=== PATIENT | female | born 1945 | race Caucasian/White ===

== ENCOUNTER 2021-02-15 14:08 | Outpatient (REF) | payer OTHER, SELFPAY ==
[2021-02-15 15:27] LABS: Influenza A PCR NEGATIVE (Negative); Influenza B PCR NEGATIVE (Negative); Resp Syncy Virus RNA Qual PCR NEGATIVE (Negative); SARS COV2 PCR INHOUSE POSITIVE (Negative)
== END 2021-02-15 14:09 | disposition home or self-care (01) ==
LOC: HO.LNP 14:08
PROVIDERS: Visit Provider Internal Medicine
DX: Z20.822 Contact with and (suspected) exposure to COVID-19 (principal)
CPT/HCPCS: 0241U

== ENCOUNTER 2024-07-29 08:48 | Outpatient (AMB) | payer OTHER, SELFPAY ==
--- NOTE | 2024-07-29 08:50 | MHC.PC.OV ---
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 Required: No Accompanied by: Self / Same As Patient Allergies No Known Allergies Allergy (Verified 07/29/24 08:50) Tobacco use date assessed: 07/29/24 Fall risk assessment: 2 + Falls in past year Last assessed Fall Risk: 07/29/24 Dental Screening Dental Screen Date: 07/29/24 Did you have a dental visit in the last 12 months?: No Did you have a dental problem in the last 6 months where you did not have access to dental care?: No Was dental information given to patient?: No (patient has dentures) [facility] Medical History (Updated 07/29/24 @ 09:20 by Ben Rogers MD) Hypothyroidism Essential hypertension Family History (Updated 07/29/24 @ 09:00 by DAHIANA Tran) Mother Cancer Lung cancer Father Stomach cancer Social History (Updated 07/29/24 @ 09:01 by DAHIANA Tran) Housing: Condominium Alcohol intake: current Alcohol intake frequency: holidays/special occasions only Patient Tobacco Use Status: Former Tobacco user service: No Current occupational status: employed Cognitive needs: No Hearing needs: No Vision needs: Yes (reading glasses) Questionnaire PHQ-9 Over the last 2 weeks, how often have you been bothered by any of the following problems? 1. Little interest or pleasure in doing things: not at all 2. Feeling down, depressed, or hopeless: not at all 3. Trouble falling or staying asleep, or sleeping too much: not at all 4. Feeling tired or having little energy: not at all 5. Poor appetite or overeating: not at all 6. Feeling bad about yourself - or that you are a failure or have let yourself or your family down: not at all 7. Trouble concentrating on things, such as reading the newspaper or watching television: not at all 8. Moving or speaking so slowly that other people could have noticed. Or the opposite - being so fidgety or restless that you have been moving around a lot more than usual: not at all 9. Thoughts that you would be better off or of hurting yourself in some way: not at all Total score: 0 Source: Developed by Drs. Babar Huertas, Sandy Loomis, Yovani Quiles and colleagues, with an educational ana from [email or web address]. Thrive Questionnaire Date Thrive assessed: 07/29/24 I am a: Patient What is your living situation today?: I have a steady place to live Within the past 12 months, did the food you bought not last and you didn't have the money to get more?: Never true Within the past 12 months, did you worry whether your food would run out before you got money to buy more?: Never true Do you have trouble paying for medicines?: No Do you have trouble getting transportation to medical appointments?: No Do you have trouble paying your heating and electricity bill?: No Do you have trouble taking care of your child, family member or friend?: No Do you have trouble with day-to-day activities such as bathing, preparing meals, shopping, managing finances, etc.?: No Are you currently unemployed and looking for a job?: No Are you interested in more education?: No Please select the resources that you would like help with: None THRIVE Score: 0 AUDIT C Alcohol Use Questionnaire (AUDIT-C) 1. How often do you have a drink containing alcohol?: Monthly or less 2. How many drinks containing alcohol do you have on a typical day when you are drinking?: 1 or 2 3. How often do you have six or more drinks on one occasion?: Never Total Score: 1 JASMIN-7 AMB Questionnaire JASMIN-7 Date JASMIN - 7 assessed: 07/29/24 Feeling nervous, anxious, or on edge: 0 = Not at all Not being able to stop or control worryin = Not at all Worrying too much about different things: 0 = Not at all Trouble relaxin = Not at all Being so restless that it is hard to sit still: 0 = Not at all Becoming easily annoyed or irritable: 0 = Not at all Feeling afraid as if something awful might happen: 0 = Not at all Total JASMIN-7 score (0-4 normal; 5-9 mild; 10-14 moderate; 15-21 severe): 0 Source: Developed by Drs. Babar Huertas, Sandy Loomis, Yovani Quiles and colleagues, with an educational ana from [email or web address]. Physical exam (Primary Care) Vital Signs: Last Vital Signs Temp 97.6 F 07/29/24 08:53 Pulse 92 07/29/24 08:53 Resp 14 07/29/24 08:53 BP 148/90 H 07/29/24 08:53 Pulse Ox 99 07/29/24 08:53 Oxygen Delivery Method Room Air 07/29/24 08:53 BMI result Body Mass Index 39.8 Tobacco/Smoking Status: Tobacco use Status Tobacco use date assessed 07/29/24 07/29/24 09:01 Patient Tobacco Use Status Former Tobacco user 07/29/24 09:01 PHQ-9: PHQ-9 Score PHQ-9: Total score 0 07/29/24 09:01 Thrive Assessment: Date of Thrive Assessment Date Thrive assessed 07/29/24 07/29/24 09:01 Coding Level of Care Code New Pt Level 4 (32722) Complex EM visit Add On G2211 Diagnoses Essential hypertension I10 Hypothyroidism E03.9 Systolic murmur R01.1 Assessment & Plan Assessment & Plan (1) Essential hypertension: Code(s): I10 - Essential (primary) hypertension Category: Medical Plan: BP in range. Continue medications at same dosage. (2) Hypothyroidism: Code(s): E03.9 - Hypothyroidism, unspecified Category: Medical Plan: BW has been ordered. Based on the results, thyroid medication will be adjusted (3) Systolic murmur: Code(s): R01.1 - Cardiac murmur, unspecified Plan: Echocardiogram ordered. Plan History of Present Illness The patient is a 79-year-old female presenting for follow-up due to transition of care, and she also requires management of her medications and health concerns. She has a history of COVID-19 infection, which notably resulted in significant symptomatology including loss of taste and smell, which have not entirely resolved. Additionally, she has been diagnosed with essential hypertension, previously managed with lisinopril, though she has recently run out of medication. The patient is currently on thyroid medication and requires routine blood work for monitoring. Moreover, she has a known systolic heart murmur that has yet to be thoroughly assessed with imaging such as an echocardiogram. Throughout the conversation, the patient expressed concern about the transition of care following the absence of her previous physician, Dr. Ardon, and her adjustment to a new healthcare provider. She lives alone, independently, and expressed challenges with night-time driving but denied any significant issues with vision or hearing. 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 - Lives alone in a condominium; resides within a complex where her best friend is a neighbor. - Drives primarily during the day; experiences difficulty driving at night. - No substance use or family planning concerns were reported. Review of Systems - Eyes: Denies halos around lights at night. - Cardiovascular: Reports previously diagnosed systolic heart murmur, no specific symptoms reported. - Neurological: Reports loss of taste and smell following a COVID-19 infection; partial transient recovery noted. Physical Exam General: Cooperative and healthy appearing Nutritional Appearance: Well nourished Orientation/consciousness: Patient oriented x3 Limitations: No limitations Head: Normal to inspection General: Appearance normal, both eyes and all related structures Neck: Normal visual inspection Chest: Normal palpation of entire chest wall Respiratory: Normal respiratory effort Neurology: Patient oriented x3 Heart: S1 S2 ESM, 2/6 in the aortic area Results Plan The patient?s essential hypertension will be managed with a consistent lisinopril regimen, ensuring to provide her with sufficient medication supply. A thorough assessment of her systolic heart murmur will be facilitated through an echocardiogram. No immediate intervention is recommended for dysgeusia as it remains residual from prior COVID-19 and improvement is anecdotal. A follow-up is scheduled in six months to monitor her cardiovascular status and ensure appropriate management of her hypertension. To achieve optimal care coordination, the patient?s thyroid function tests were ordered within the [facility] system, and her lisinopril and thyroid medications were refilled accordingly. Patient was informed and verbally consented to the use of an ambient scribe for clinic note documentation during this visit. Discussion Notes During our discussion, I addressed the patient's concerns regarding the transition of care due to Dr. Ardon's absence. We agreed to continue her lisinopril prescription as part of hypertension management, ensuring proper medication supply. We explored the impact of her COVID-19 infection on her senses, particularly the persistent dysgeusia, which we will continue to monitor, recognizing active interventions are limited. I explained the need for an echocardiogram to evaluate her known systolic heart murmur more deeply. I emphasized the importance of having her thyroid blood work conducted within the [facility] system for efficient processing, aligning with our clinical senior sql server database developer protocols. Follow-up in six months is planned to review her overall health status, address any emerging concerns, and re-evaluate her management plan if necessary. 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 - Visit the laboratory for thyroid function blood work within the [facility] system. - Arrange for an echocardiogram to assess heart murmur. - Monitor the intermittent improvement of taste and smell; report any significant changes. - Return for follow-up appointment in six months. - For any immediate health concerns, contact the clinic promptly. Orders: Orders Basic Metabolic Panel Today E03.9 - Hypothyroidism, unspecified, I10 - Essential (primary) hypertension Complete Blood Count no Diff Today E03.9 - Hypothyroidism, unspecified, I10 - Essential (primary) hypertension Liver Panel Today E03.9 - Hypothyroidism, unspecified, I10 - Essential (primary) hypertension Lipid Panel Today E03.9 - Hypothyroidism, unspecified, I10 - Essential (primary) hypertension UA and rflx microscopic Today E03.9 - Hypothyroidism, unspecified, I10 - Essential (primary) hypertension
[2024-07-29 08:53] VITALS: BP 148/90; PULSE 92; RESP 14; TEMP 36.4; O2SAT 99; BMI 39.8
== END 2024-07-29 09:15 | disposition home or self-care (01) ==
LOC: HO.HMCHD 08:48
PROVIDERS: PCP Internal Medicine; Visit Provider Internal Medicine
DX: I10 Essential (primary) hypertension (principal); E03.9 Hypothyroidism, unspecified; R01.1 Cardiac murmur, unspecified

== ENCOUNTER → 2024-07-29 08:48 | Outpatient (BNVA) | payer OTHER, SELFPAY | PROVIDERS: PCP Internal Medicine; Visit Provider Internal Medicine ==

== ENCOUNTER 2024-07-29 09:27 | Outpatient (REF) | payer OTHER, SELFPAY ==
[2024-07-29 10:37] LABS: Hematocrit 27.5 % (37.0-47.0); Hemoglobin 7.8 g/dl (12.0-16.0); Mean Corpuscular HGB Conc 28.4 g/dl (31.0-35.0); Mean Corpuscular Hemoglobin 20.6 pg (27.0-33.0); Mean Corpuscular Volume 72.6 fL (80.0-98.0); Mean Platelet Volume 10.3 fL (9.4-12.3); Platelet Count 294 X10*3/uL (160-400); Red Blood Count 3.79 X10*6/uL (4.20-5.50); Red Cell Distribution Width 17.4 % (11.0-16.0); White Blood Count 7.1 X10*3/uL (4.8-10.8)
[2024-07-29 11:03] LABS: Alanine Aminotransferase 25 U/L (0-31); Alkaline Phosphatase 101 U/L (39-117); Anion Gap 10 (12-20); Aspartate Amino Transferase 35 U/L (5-31); Bilirubin Direct 0.2 mg/dL (0.0-0.5); Bilirubin Total 0.4 mg/dL (0.0-1.0); Blood Urea Nitrogen 11 mg/dL (9-16); Calcium 9.1 mg/dL (8.4-10.2); Carbon Dioxide 24 mmol/L (22-29); Chloride 109 mmol/L (96-108); Cholesterol 178 mg/dL (<200); Estimated Glomerular Filt Rate > 60; Glucose Random 118 mg/dL (60-115); HDL Cholesterol 49 mg/dL (>40); LDL Cholesterol Calculated 114 mg/dL (<100); Sodium 139 mmol/L (135-145); Total Protein 7.4 g/dL (6.5-8.0); Triglycerides 75 mg/dL (<150)
[2024-07-29 11:10] LABS: Appearance Urine Cloudy; Color Urine Dark Yellow; Glucose Urine UA Negative (Negative); Leukocyte Esterase Urine Trace (Negative); Nitrite Urine Negative (Negative); PH 5.5 (5.0-9.0); Specific Gravity - Urine 1.025 (1.005-1.025); UMIC TRIGGER UA YES; Urine Blood Negative (Negative); Urine Ketones Trace mg/dL (Negative); Urine Protein Trace mg/dL (Neg-Trace)
[2024-07-29 11:32] LABS: Bacteria Urine 2+ (None Seen); Hyaline Casts Urine 0-2 /LPF (0-2); RBC Urine 0-2 /HPF (0-2); WBC Urine 0-5 /HPF (0-5)
== END 2024-07-29 09:28 | disposition home or self-care (01) ==
LOC: HO.10HDL 09:27
PROVIDERS: Visit Provider Internal Medicine
DX: I10 Essential (primary) hypertension (principal); E03.9 Hypothyroidism, unspecified
CPT/HCPCS: 36415; 80048; 80061; 80076; 81001; 81003; 85027

== ENCOUNTER 2024-08-06 13:27 | Outpatient (REF) | payer OTHER, SELFPAY ==
[2024-08-06 14:37] LABS: MANUAL DIFF FLAG NO
[2024-08-06 15:12] LABS: Basophils Percent Auto 0.4 % (0-2); Imm Gran Abs Auto 0.05 X10*3/uL (0.00-0.03); Imm Gran Pct Auto 0.5 % (0.0-0.4); Lymphocytes Absolute Auto 1.7 X10*3/uL (1.2-4.9); Lymphocytes Percent Auto 18.4 % (20-40); Mean Corpuscular HGB Conc 29.6 g/dl (31.0-35.0); Mean Corpuscular Hemoglobin 20.9 pg (27.0-33.0); Mean Corpuscular Volume 70.7 fL (80.0-98.0); Monocytes Absolute Auto 0.7 X10*3/uL (0.1-1.2); Monocytes Percent Auto 7.1 % (2-11); Neutrophils Absolute Auto 6.8 x10*3/uL (2.0-8.3); Neutrophils Percent Auto 73.6 % (45-73); Platelet Count 328 X10*3/uL (160-400); Red Blood Count 3.82 X10*6/uL (4.20-5.50); Red Cell Distribution Width 17.9 % (11.0-16.0); White Blood Count 9.2 X10*3/uL (4.8-10.8)
[2024-08-06 15:21] LABS: Estimated Average Glucose 140 mg/dL; Hemoglobin A1C 102.0831 umol/L; Hemoglobin A1c % 6.5 % (<6.0)
[2024-08-06 15:33] LABS: Appearance Urine Clear; Color Urine Yellow; Glucose Urine UA Negative (Negative); Leukocyte Esterase Urine Negative (Negative); Nitrite Urine Negative (Negative); PH 7.5 (5.0-9.0); Specific Gravity - Urine 1.015 (1.005-1.025); Urine Blood Negative (Negative); Urine Ketones Negative (Negative); Urine Protein Negative (Neg-Trace)
[2024-08-06 15:46] LABS: Alanine Aminotransferase 31 U/L (0-31); Albumin Level 4.1 g/dL (3.5-5.0); Anion Gap 12 (12-20); Aspartate Amino Transferase 36 U/L (5-31); Bilirubin Total 0.3 mg/dL (0.0-1.0); Blood Urea Nitrogen 12 mg/dL (9-16); Calcium 9.5 mg/dL (8.4-10.2); Carbon Dioxide 25 mmol/L (22-29); Chloride 109 mmol/L (96-108); Estimated Glomerular Filt Rate > 60; Glucose Random 107 mg/dL (60-115); Iron 11 mcg/dL (30-160); Percent Iron Saturation 3 % (15-50); Potassium 4.7 mmol/L (3.3-5.1); Sodium 141 mmol/L (135-145); Total Iron Binding Capacity 393 mcg/dL (228-428); Total Protein 7.2 g/dL (6.5-8.0); Unsaturated Iron Binding 382 ug/dL
[2024-08-06 16:04] LABS: TSH reflex Free T4 4.35 uIU/mL (0.32-4.0)
[2024-08-06 16:10] LABS: Folate 15.1 ng/mL (> or = 4.0); Vitamin B12 268 pg/mL (200-900)
[2024-08-06 16:35] LABS: Alkaline Phosphatase 113 U/L (39-117)
[2024-08-06 16:49] LABS: Free T4 (Free Thyroxine) 1.01 ng/dL (0.71-1.85)
== END 2024-08-06 13:28 | disposition home or self-care (01) ==
LOC: HO.LAB 13:27
PROVIDERS: Internal Medicine; PCP Internal Medicine; Visit Provider Internal Medicine
DX: D64.9 Anemia, unspecified (principal); E03.9 Hypothyroidism, unspecified; I10 Essential (primary) hypertension; Z13.1 Encounter for screening for diabetes mellitus
CPT/HCPCS: 80053; 81003; 82607; 82746; 83036; 83540; 84439; 84443; 85025; 96127

== ENCOUNTER 2024-08-06 13:27 | Outpatient (AMB) | payer OTHER, SELFPAY ==
--- NOTE | 2024-08-06 13:43 | MHC.PC.OV ---
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: No Accompanied by: Self / Same As Patient Allergies No Known Allergies Allergy (Verified 08/06/24 13:44) Tobacco use date assessed: 08/06/24 Fall risk assessment: No Falls in past year Last assessed Fall Risk: 08/06/24 Dental Screening Dental Screen Date: 08/06/24 Did you have a dental visit in the last 12 months?: No Did you have a dental problem in the last 6 months where you did not have access to dental care?: No HPI HPI Comments History of Present Illness Details The patient is an 79 year old female with a past medical history of hypothyroid, diabetes, , hyperlipidemia, anxiety presenting for follow up labs She was seen recently by colleague-labs were ordered. She was noted to be quite anemic. Referral to gastroenterology has been placed. Anemia labs ordered today Hypothyroid: On levothyroxine 75mcg daily. TSH minimally elevated with normal free T4 CV: On lisinopril 20mg daily. ROS CONSTITUTIONAL: Denies weight loss, fever and chills. HEENT: Denies changes in vision and hearing. RESPIRATORY: Denies SOB and cough. CV: Denies palpitations and CP GI: Denies abdominal pain, nausea, vomiting and diarrhea. : Denies dysuria and urinary frequency. MSK: Denies new myalgia and joint pain. SKIN: Denies rash and pruritus. NEUROLOGICAL: Denies headache PSYCHIATRIC: Denies recent changes in mood. PHYSICAL EXAM: GENERAL: Alert and oriented x 3. NAD EYES: EOMI. Anicteric. HENT: Moist mucous membranes. No scleral icterus. No cervical lymphadenopathy. LUNGS: Clear to auscultation bilaterally. CARDIOVASCULAR: Regular rate and rhythm. No murmur. No JVD. ABDOMEN: Soft, non-tender +bs EXTREMITIES: No edema. Non-tender. SKIN: No rashes or lesions. Warm. NEUROLOGIC: No focal neurological deficits. CN II-XII grossly intact PSYCHIATRIC: Cooperative. Appropriate mood and affect [facility] Medical History Hypothyroidism Essential hypertension Family History Mother Cancer Lung cancer Father Stomach cancer Social History Housing: Condominium Alcohol intake: current Alcohol intake frequency: holidays/special occasions only Patient Tobacco Use Status: Former Tobacco user service: No Current occupational status: employed Cognitive needs: No Hearing needs: No Vision needs: Yes (reading glasses) Questionnaire PHQ-9 Over the last 2 weeks, how often have you been bothered by any of the following problems? 1. Little interest or pleasure in doing things: not at all 2. Feeling down, depressed, or hopeless: not at all 3. Trouble falling or staying asleep, or sleeping too much: not at all 4. Feeling tired or having little energy: not at all 5. Poor appetite or overeating: not at all 6. Feeling bad about yourself - or that you are a failure or have let yourself or your family down: not at all 7. Trouble concentrating on things, such as reading the newspaper or watching television: not at all 8. Moving or speaking so slowly that other people could have noticed. Or the opposite - being so fidgety or restless that you have been moving around a lot more than usual: not at all 9. Thoughts that you would be better off or of hurting yourself in some way: not at all Total score: 0 Depression Screening Interpretation: Negative Depression Screening Done: Yes [id number] - PHQ-9 Billing: Yes Source: Developed by Drs. Babar Huertas, Sandy Loomis, Yovani Quiles and colleagues, with an educational ana from [employer]. Thrive Questionnaire Date Thrive assessed: 08/06/24 I am a: Patient Within the past 12 months, did the food you bought not last and you didn't have the money to get more?: Never true Within the past 12 months, did you worry whether your food would run out before you got money to buy more?: Never true Do you have trouble paying for medicines?: No Do you have trouble getting transportation to medical appointments?: No Do you have trouble paying your heating and electricity bill?: No Do you have trouble taking care of your child, family member or friend?: No Do you have trouble with day-to-day activities such as bathing, preparing meals, shopping, managing finances, etc.?: No Are you currently unemployed and looking for a job?: No Are you interested in more education?: No THRIVE Score: 0 AUDIT C Alcohol Use Questionnaire (AUDIT-C) 1. How often do you have a drink containing alcohol?: Monthly or less 2. How many drinks containing alcohol do you have on a typical day when you are drinking?: 1 or 2 3. How often do you have six or more drinks on one occasion?: Less than monthly Total Score: 2 JASMIN-7 AMB Questionnaire JASMIN-7 Date JASMIN - 7 assessed: 08/06/24 Feeling nervous, anxious, or on edge: 0 = Not at all Not being able to stop or control worryin = Not at all Worrying too much about different things: 0 = Not at all Trouble relaxin = Not at all Being so restless that it is hard to sit still: 0 = Not at all Becoming easily annoyed or irritable: 0 = Not at all Feeling afraid as if something awful might happen: 0 = Not at all Total JASMIN-7 score (0-4 normal; 5-9 mild; 10-14 moderate; 15-21 severe): 0 Source: Developed by Drs. Babar Huertas, Sandy Loomis, Yovani Quiles and colleagues, with an educational ana from [employer]. Physical exam (Primary Care) Vital Signs: Last Vital Signs Temp 97.4 F 08/06/24 13:44 Pulse 103 H 08/06/24 13:44 BP 140/82 H 08/06/24 13:44 Pulse Ox 99 08/06/24 13:44 Oxygen Delivery Method Room Air 08/06/24 13:44 BMI result Body Mass Index 39.6 Tobacco/Smoking Status: Tobacco use Status Tobacco use date assessed 08/06/24 08/06/24 13:46 Patient Tobacco Use Status Former Tobacco user 08/06/24 13:46 PHQ-9: PHQ-9 Score PHQ-9: Total score 0 08/09/24 15:52 Depression Screening Interpretation: Negative Thrive Assessment: Date of Thrive Assessment Date Thrive assessed 08/06/24 08/06/24 13:46 Coding Level of Care Code Est Pt Level 4 (23003) Diagnoses Anemia, unspecified type D64.9 Anemia type: unspecified type Hypothyroidism, unspecified type E03.9 Hypothyroidism type: unspecified Essential hypertension I10 Additional Codes PHQ-9 - 31601 - PHQ-9 Billing: Yes ([id number]) Assessment & Plan Assessment & Plan (1) Anemia: Code(s): D64.9 - Anemia, unspecified Category: Medical Qualifiers: Anemia type: unspecified type Qualified Code(s): D64.9 - Anemia, unspecified (2) Hypothyroidism: Code(s): E03.9 - Hypothyroidism, unspecified Category: Medical Qualifiers: Hypothyroidism type: unspecified Qualified Code(s): E03.9 - Hypothyroidism, unspecified (3) Essential hypertension: Code(s): I10 - Essential (primary) hypertension Category: Medical Plan 79 year old presenting for follow up Labs reviewed and further work up ordered-referral placed to gastroenterology Orders: Orders IRON PROFILE 08/06/24 D64.9 - Anemia, unspecified, E03.9 - Hypothyroidism, unspecified, I10 - Essential (primary) hypertension Vitamin B12 and Folate 08/06/24 D64.9 - Anemia, unspecified, E03.9 - Hypothyroidism, unspecified, I10 - Essential (primary) hypertension Complete Blood Count Auto Diff 08/06/24 D64.9 - Anemia, unspecified, E03.9 - Hypothyroidism, unspecified, I10 - Essential (primary) hypertension Pathologist Review - CBC 08/06/24 D64.9 - Anemia, unspecified, E03.9 - Hypothyroidism, unspecified, I10 - Essential (primary) hypertension TSH reflex Free T4 08/06/24 D64.9 - Anemia, unspecified, E03.9 - Hypothyroidism, unspecified, I10 - Essential (primary) hypertension Comprehensive Met. Panel 08/06/24 D64.9 - Anemia, unspecified, E03.9 - Hypothyroidism, unspecified, I10 - Essential (primary) hypertension Hemoglobin A1c 08/06/24 D64.9 - Anemia, unspecified, E03.9 - Hypothyroidism, unspecified, I10 - Essential (primary) hypertension Referrals Gastroenterology Referral D64.9 - Anemia, unspecified Medications: New lisinopril 20 mg PO DAILY 90 tabs 3RF levothyroxine 75 mcg PO DAILY 90 tabs 3RF
[2024-08-06 13:44] VITALS: BP 140/82; PULSE 103; TEMP 36.3; O2SAT 99; BMI 39.6
== END 2024-08-06 14:54 | disposition home or self-care (01) ==
LOC: HO.HMCHD 13:27
PROVIDERS: PCP Internal Medicine; Visit Provider Internal Medicine
DX: D64.9 Anemia, unspecified (principal); E03.9 Hypothyroidism, unspecified; I10 Essential (primary) hypertension

== ENCOUNTER → 2024-08-21 14:34 | Outpatient (REF) | payer OTHER, SELFPAY ==
--- NOTE | 2024-08-21 14:39 | CA_ITS ---
Transthoracic Echocardiogram Patient (Last, First, Middle): Nelida Das J Gender: Female Date of : 1945 Age: 79 Procedure Date: 08/21/2024 Procedure Type: Transthoracic Echocardiogram Location: OP Height: 152.4 cm Weight: 92.08 kg BSA: 1.88 m2 Heart Rate: bpm BP: 176 / 82 mmHg Uncrater: TO Referring MD: Ben Rogers MD Symptoms: R01.1 - Cardiac murmur, unspecified Study Quality: Fair/Contrast Conclusions: - Normal left ventricular cavity size. There is mildly increased left ventricular wall thickness. The left ventricular systolic function is low normal. The visually estimated ejection fraction is between 50-55%. - Normal right ventricular cavity size and systolic function. - The left atrium is severely dilated. The right atrium is normal in size. - There is severe aortic valve stenosis. - Severe pulmonary hypertension is present. Findings Procedure Information Contrast agent, definity, is being given per protocol without apparent complications. Left Ventricle Normal left ventricular cavity size. There is mildly increased left ventricular wall thickness. The left ventricular systolic function is low normal. The visually estimated ejection fraction is between 50-55%. There is no evidence of regional wall motion abnormalities. Diastolic function is indeterminate on the basis of available data. Right Ventricle Normal right ventricular cavity size and systolic function. Atria The left atrium is severely dilated. The right atrium is normal in size. Aortic Valve There is severe calcification of the aortic valve. There is severe aortic valve stenosis. The mean gradient is 43 mmHg. The aortic valve area is 0.85 cm2. There is mild aortic valve regurgitation. Mitral Valve There is severe mitral annular calcification. There is no mitral valve regurgitation. There is no mitral valve stenosis. Pulmonic Valve The pulmonic valve is likely normal. Tricuspid Valve Normal tricuspid valve structure. There is no tricuspid valve regurgitation. The right ventricular systolic pressure is 62 mmHg. Significantly elevated right atrial pressure. Severe pulmonary hypertension is present. Great Vessels There is mild dilatation of the ascending aorta measuring 4.00 cm. The visualized portions of the pulmonary artery and branches are normal. Venous The inferior vena cava is dilated and does not collapse with inspiration. Pericardium/Pleural There is no evidence of pericardial effusion. Measurements 2D Linear Measurements IVSd: 1.34 0.6-0.9/0.6-1.0 cm LVIDd: 5.32 3.9-5.3/4.2-5.9 cm LVIDd Index: 2.83 2.4-3.2/2.2-3.1 cm/m2 LVIDs: 3.95 2.0-3.6 cm LVPWd: 0.95 0.7-1.1 cm LV Mass: 302.29 67-162/88-224 g LV Mass Index: 160.79 43-95/49-115 g/m2 LVOT Diam: 2.00 3.0+(-)1.3 cm 2D Systolic Function EF 4C: 43.00 >55% EF 2C: 44.00 >55% EF BiP: 44.80 >55% Mitral Valve MV VTI: 0.35 MV Pk Sanket: 1.67 MV Mn Sanket: 1.26 MV Pk Grad: 11.00 MV Mn Grad: 7.00 MV Pk E: 1.52 MV PK A: 1.49 MV Decel Time: 162.00 E/A: 1.00 E'Lateral: 4.35 E'Medial: 4.90 E/E' Med: 31.00 E/E' Lat: 34.90 PHT: 47.00 MVA PHT: 4.68 MVA Continuity: 2.26 Decel Rolette: 9.41 Aortic Valve AoV Pk Sanket: 4.17 AoV Mn Sanket: 2.99 AoV VTI: 0.91 AoV Pk Grad: 70.00 Aov Mn Grad: 43.00 MEHNAZ Cont.VTI: 0.85 AI Pk Sanket: 3.60 AI Rolette: 3.11 LVOT LVOT Pk Sanket: 1.08 LVOT Mn Sanket: 0.74 LVOT VTI: 0.25 LVOT Pk Grad: 5.00 LVOT Mn Grad: 3.00 LVOT Diam: 2.00 LVOT Area: 3.14 Diastolic Function MV Pk E: 1.52 MV Pk A: 1.49 E/A: 1.00 E'Medial: 4.90 E/E' Med: 31.00 E' Laterial: 4.35 E/E' Lat: 34.90 Right Ventricle TAPSE (mm): 20.90 TVS' Sanket: 10.30 Tricuspid Valve TR Pk Sanket: 3.43 TR Pk Grad: 47.00 RA Press: 15.00 RVSP: 62.00 Great Vessels Aorta Sinus of Valsalva: 2.98 2.0-3.5 cm Ao Asc: 4.00 2.1-3.4 cm Updated in Other Vendor System with Status of Final Evert Borrero MD electronically signed on 08/22/2024 11:59:16 PM with status of Final
--- OUTSIDE RECORDS SUMMARY | 2024-08-21 14:51 | XMS_ITS | Patient Health Record ---
Author Organization [facility] Address [address] [place] [address] [place] [id number] Care Team Providers Care Gis Application Developer Name Role Phone Loree Peace M.D. Primary Care Provider Keegan Rolon Jr, Raoul Unavailable Reason For Referral No Information Medications Medication SIG (Take, Route, Frequency, Duration) Notes Start Date End Date Status Colyte with Flavor Packs 240 GM As directed Orally Over the specified time. for 1 day(s) 02/22/2016 Active busPIRone HCl 10 MG 1 tablet Orally once a day Active Lisinopril 20 MG 1 tablet Orally Once a day Active Levothyroxine Sodium 137 MCG 1 tablet Or ally Once a day Active Problems Problem Type SNOMED Code ICD Code Onset Dates Problem Status W/U Status Risk Notes Problem [id number] Colon cancer screening (Z12.11) Active confirmed Problem 10022143 Encounter for other preprocedural examination (Z01.818) Active confirmed Encounters Encounter Location Date Provider Diagnosis [facility] [address] [id number] 08/14/2024 Raoul Rolon Jr Plan Of Treatment Future Test Test Name Order Date COLONOSCOPY 02/22/2016 Next Appt Details Provider Name:Raoul salinas Jr, 08/28/2024 11:00:00 AM, [address] [place] [address], [facility], [place], [id number], Insurance Providers Payer Name Payer Address Payer Phone Subscriber Number Group Number Insured Name Patient Relationship to Insured Coverage Start Date Coverage End Date [facility] [address] [place] [phone] [id number] WINSTON CANO Self - patient is the insured Medical (General) History Medical History History ICD Code hypertension hypothyroidism depression
--- OUTSIDE RECORDS SUMMARY | 2024-08-21 14:51 | XMS_ITS ---
Author Organization [facility] Address [address] [facility] [address] [place] [address] Care Team Providers Care Concrete Stone Fabricator Name Role Phone Loree Peace M.D. Primary Care Provider Keegan Rolon Jr, Raoul Unavailable [phone] REASON FOR VISIT Labs from PCP Encounters Encounter Location Date Provider Diagnosis [facility] [address] [facility] [address] [place] [address] 08/14/2024 Raoul Rolon Jr Plan Of Treatment Next Appt Details Provider Name:Raoul salinas Jr, 08/28/2024 11:00:00 AM, [address] [facility], [address], [place], [address], Progress Notes * WINSTON CANODOB:[birth year] (79 yo F)Acc No.[id number]:08/14/2024 Patient:?JONATHON CANOBETH :1945???Age:79 Y???Sex:Female Address:[address] [place] [address], [facility], [place], [address] * true * Date:? Generated for Carlenei kenia/Sue/eTransmitting on:?08/21/2024 02:51 PM EDT
== END ==
LOC: HO.CARD 14:34
PROVIDERS: PCP Internal Medicine; Visit Provider Internal Medicine
DX: R01.1 Cardiac murmur, unspecified (principal)
CPT/HCPCS: 93306; Q9957

== ENCOUNTER → 2024-08-21 14:39 | Outpatient (BNV) | payer OTHER, SELFPAY | PROVIDERS: PCP Internal Medicine; Visit Provider Internal Medicine Cardiovascular Disease | DX: I27.20 Pulmonary hypertension, unspecified (principal); I35.2 Nonrheumatic aortic (valve) stenosis with insufficiency; I51.7 Cardiomegaly | CPT/HCPCS: 93306 ==

== ENCOUNTER 2024-10-19 14:08 | Outpatient (AMB) | payer OTHER, SELFPAY ==
--- NOTE | 2024-10-19 14:30 | MHC.OFFVIS ---
Vital Signs 10/19/24 14:31 Height 5 ft Weight 194 lb 7.163 oz BMI 38.0 BP 160/80 H Blood Pressure Location Lt brachial Position Sitting Pulse 92 Pulse Source Monitor Intake Visit Reasons: Nonrheumatic aortic (valve) stenosis Intake Note: TAVR consult Senior Escrow Officer Required: No Accompanied by: Self / Same As Patient Allergies No Known Allergies Allergy (Verified 08/06/24 13:44) Medication List - Last Reconciled 10/19/24 by Evert Borrero MD levothyroxine 75 mcg PO DAILY lisinopril 20 mg PO DAILY HPI Comments Details: [age] year female who is here for management of aortic valve stenosis. She has background history of hypertension and hypothyroidism. She is saying she has white coat hypertension and usually has elevated blood pressure in doctor's office. She has been experiencing dyspnea with exertion especially with going upstairs. 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 She is denying any chest discomfort or syncope. She was also noticed to be anemic recently and was being worked up and endoscopy was planned which has been canceled at this stage. She is denying any rectal bleeding or black stools although she started taking iron supplements recently and has noticed some change in the color of the stool. She is a nonsmoker. No other medical issues in the past. [facility] Medical History (Updated 08/24/24 @ 08:58 by Ben Rogers MD) Aortic stenosis Hypothyroidism Essential hypertension Surgical History History of colonoscopy (~07/13/16) Family History Mother Cancer Lung cancer Father Stomach cancer Social History Housing: Condominium Alcohol intake: current Alcohol intake frequency: holidays/special occasions only Patient Tobacco Use Status: Former Tobacco user service: No Current occupational status: employed Cognitive needs: No Hearing needs: No Vision needs: Yes (reading glasses) Review of Systems Const Denies chills, Denies fatigue, Denies fever(s), Denies frequent falls, Denies weakness, Denies weight gain and Denies weight loss ENT Denies dizziness Card Denies chest pain, Denies leg edema, Denies lightheadedness, Denies palpitations, Denies dyspnea, Denies dyspnea on exertion and Denies orthopnea Resp Denies cough, Denies dyspnea and Denies dyspnea on exertion GI Denies bloating and Denies change in bowel habits Musc Denies muscle weakness, Denies numbness and Denies tingling Neuro Denies dizziness, Denies frequent falls, Denies numbness, Denies tingling and Denies weakness Endo Denies fatigue and Denies palpitations Physical Exam Vital Signs: Last Vital Signs Pulse 92 10/19/24 14:31 BP 160/80 H 10/19/24 14:31 BMI result Body Mass Index 38.0 GENERAL APPEARANCE: in no acute distress, pleasant. NECK: no carotid bruit, no jugular venous distention. Delayed carotid upstrokes. SKIN: no suspicious lesions, warm and dry. HEART: Ejection systolic murmur aortic area with absent 2nd heart sound, regular rate and rhythm. LUNGS: clear to auscultation bilaterally. ABDOMEN: soft, nontender. EXTREMITIES: no edema. PERIPHERAL PULSES: equal. NEUROLOGIC: No gross deficits, AAO X 3 Office Procedures EKG Details: Sinus rhythm 92 beats per minute, normal axis, nonspecific ST-T changes, QTC 430 milliseconds. 03437-Hkbsaafqfezgebmpe, Complete Assessment & Plan Assessment & Plan (1) Anemia: Code(s): D64.9 - Anemia, unspecified Category: Medical Qualifiers: Anemia type: unspecified type Qualified Code(s): D64.9 - Anemia, unspecified (2) Aortic stenosis: Code(s): I35.0 - Nonrheumatic aortic (valve) stenosis Category: Medical (3) Essential hypertension: Code(s): I10 - Essential (primary) hypertension Category: Medical Plan Fatou 79-year-old female who is here for management of severe aortic valve stenosis. She had echocardiography performed in August 2024 which showed EF 50-55% with severe aortic valve stenosis with aortic valve area of 0.85 cm2 and mean gradient of 43 mm Hg. She was also noticed to have severe pulmonary hypertension with pulmonary artery systolic pressure is 62 mm Hg. Right ventricular function and size was normal. She does not have any significant conduction issues on the EKG. I will send her blood pressure cuff and she can monitor her blood pressure at home and we can see if her hypertension is poorly controlled or she truly has white coat hypertension. We discussed in detail about management options including surgical aortic valve replacement and transcatheter aortic valve replacement. She is interested in transcatheter aortic valve replacement. I have explained to her about the workup including TAVR protocol CTA and a discussion with Cardiothoracic surgery. We will arrange this at [facility]. I have discussed with her about potential complications including bleeding, vascular injury, infection, stroke, and permanent pacemaker placement. She understands and is agreeable for further workup at this stage. She also has anemia and should undergo endoscopy to understand the cause. She is intermediate risk for perioperative complications. Thank you for allowing me to participate in the care of your patient. Please feel free to contact me if you have any questions. Medications: New blood pressure monitor (Blood Pressure Kit) As directed 1 ea 0RF I10 - Essential (primary) hypertension Coding Level of Care Code New Pt Level 5 (35436) Complex EM visit Add On G2211 Diagnoses Anemia, unspecified type D64.9 Anemia type: unspecified type Aortic stenosis I35.0 Essential hypertension I10 CPT Codes EKG - CPT: 73273-Lekhxedrewztxpitq, Complete ([id number])
[2024-10-19 14:31] VITALS: BP 160/80; PULSE 92; BMI 38.0
--- OUTSIDE RECORDS SUMMARY | 2024-10-19 16:05 | XMS_ITS | Patient Health Record ---
Author Organization [facility] Address [address] [place] [address] Care Team Providers Care Fur Buyer Name Role Phone CHAD, KARTIK Primary Care Provider Raoul Allen Jr [phone] Allergies No Known Allergies Reason For Referral No Information Medications Medication SIG (Take, Route, Frequency, Duration) Notes Start Date End Date Status Iron (Ferrous Sulfate) 325 (65 Fe) MG 1 tablet Orally Three times a Week Active Lisinopril 20 MG 1 tablet Orally Once a day Active Levothyroxine Sodium 137 MCG 1 tablet Or ally Once a day Active Immunizations Vaccine Route Administration Date Status Comme nts Influenza Unknown 03/03/2024 Administered Problems Problem Type SNOMED Code ICD Code Onset Dates Problem Status W/U Status Risk Notes Problem 435162309 Colon cancer screening (Z12.11) Active confirmed Problem 92599034 Encounter for other preprocedural examination (Z01.818) Active confirmed Problem 85053536 Iron deficiency anemia, unspecified iron deficiency anemia type (D50.9) Active confirmed Vital Signs Temperature 98.0 degrees Fahrenheit 08/28/2024 Blood pressure diastolic 01 mm Hg 08/28/2024 Height 60.5 in 08/28/2024 Blood pressure systolic 001 mm Hg 08/28/2024 Weight 202 lbs 08/28/2024 BMI 38.8 kg/m2 08/28/2024 Encounters Encounter Location Date Provider Diagnosis [facility] [address] [place] [address] 08/28/2024 Raoul Rolon Jr Iron deficiency anemia, unspecified iron deficiency anemia type D50.9 [facility] [address] [place] [address] 08/14/2024 Raoul Rolon Jr [facility] [address] [place] [address] 09/16/2024 Raoul Rolon Jr Assessments Encounter Date Diagnosis (ICD Code) Assessment Notes Treatment Notes Treatment Clinical Notes Section Notes 08/28/2024 Iron deficiency anemia, unspecified iron deficiency anemia type (ICD-10 - D50.9) We discussed further evaluation of her iron deficiency anemia. We have recommended upper endoscopy and colonoscopy. She is aware of risks and benefits and agrees to proceed. She is advised to stop iron 1 week before the procedure. 08/28/2024 Other Endoscopy material was printed We discussed further evaluation of her iron deficiency anemia. We have recommended upper endoscopy and colonoscopy. She is aware of risks and benefits and agrees to proceed. She is advised to stop iron 1 week before the procedure. Plan Of Treatment Future Test Test Name Order Date COLONOSCOPY 02/22/2016 UPPER GI ENDOSCOPY 08/28/2024 COLONOSCOPY 08/28/2024 Insurance Providers Payer Name Payer Address Payer Phone Subscriber Number Group Number Insured Name Patient Relationship to Insured Coverage Start Date Coverage End Date [facility] [address] [place] [phone] [id number] WINSTON CANO Self - patient is the insured Medical (General) History Medical History History ICD Code hypertension hypothyroidism depression
== END 2024-10-19 15:10 | disposition home or self-care (01) ==
LOC: HO.HCS 14:08
PROVIDERS: PCP Internal Medicine; Visit Provider Internal Medicine Cardiovascular Disease
DX: D64.9 Anemia, unspecified (principal); I35.0 Nonrheumatic aortic (valve) stenosis; I10 Essential (primary) hypertension; R94.31 Abnormal electrocardiogram [ECG] [EKG]
CPT/HCPCS: 93010; 99214

== ENCOUNTER → 2024-10-19 14:08 | Outpatient (BNVA) | payer OTHER, SELFPAY | PROVIDERS: PCP Internal Medicine; Visit Provider Internal Medicine Cardiovascular Disease | DX: I10 Essential (primary) hypertension (principal); I35.0 Nonrheumatic aortic (valve) stenosis | CPT/HCPCS: 93005 ==

== ENCOUNTER 2024-12-29 15:31 | Outpatient (REF) | payer OTHER, SELFPAY ==
--- OUTSIDE RECORDS SUMMARY | 2024-12-29 16:49 | XMS_ITS | Patient Health Record ---
Author Organization [facility] Address [address] [place] [address] Care Team Providers Care Caul Fat Puller Name Role Phone CHAD, KARTIK Primary Care Provider Raoul Allen Jr Allergies No Known Allergies Reason For Referral [...] Problem Status W/U Status Risk Notes Problem 001891393 Colon cancer screening (Z12.11) Active confirmed Problem 57212343 Encounter for other preprocedural examination (Z01.818) Active confirmed Problem 39359110 Iron deficiency anemia, unspecified iron deficiency anemia type (D50.9) Active confirmed Vital Signs Temperature 98.0 degrees Fahrenheit 08/28/2024 Blood pressure diastolic 01 mm Hg 08/28/2024 Height 60.5 in 08/28/2024 Blood pressure systolic 001 mm Hg 08/28/2024 Weight 202 lbs 08/28/2024 BMI 38.8 kg/m2 08/28/2024 Encounters Encounter Location Date Provider Diagnosis [facility] [address] [place] [address] 08/28/2024 Raoul Rolon Jr Iron deficiency anemia, unspecified iron deficiency anemia type D50.9 [facility] [address] [place] [address] 08/14/2024 Raoul Rolon Jr [facility] [address] [place] [address] 09/16/2024 Raoul Rolon Jr [facility] [address] [place] [address] 10/29/2024 Raoul Rolon Jr Assessments Encounter Date Diagnosis [...] Insured Coverage Start Date Coverage End Date [facility] [address] [place] [phone] [id number] WINSTON CANO Self - patient is the insured Medical (General) History Medical History History ICD Code hypertension hypothyroidism depression
[2024-12-29 17:13] LABS: Hematocrit 30.5 % (37.0-47.0); Hemoglobin 9.3 g/dl (12.0-16.0); Mean Corpuscular HGB Conc 30.5 g/dl (31.0-35.0); Mean Corpuscular Hemoglobin 26.6 pg (27.0-33.0); Mean Corpuscular Volume 87.4 fL (80.0-98.0); NRBC Abs Auto 0.000 X10*3/uL (0.0-0.012); NRBC Pct Auto 0.0 /100WBC (0.0-0.2); Platelet Count 295 X10*3/uL (160-400); Red Blood Count 3.49 X10*6/uL (4.20-5.50); White Blood Count 8.1 X10*3/uL (4.8-10.8)
[2024-12-29 17:42] LABS: B Type Natriuretic Peptide 356 pg/mL (<100)
[2024-12-29 17:51] LABS: Anion Gap 14 (12-20); Blood Urea Nitrogen 17 mg/dL (9-16); Calcium 9.4 mg/dL (8.4-10.2); Carbon Dioxide 25 mmol/L (22-29); Chloride 106 mmol/L (96-108); Estimated Glomerular Filt Rate > 60; Iron 24 mcg/dL (30-160); Percent Iron Saturation 7 % (15-50); Potassium 4.9 mmol/L (3.3-5.1); Sodium 140 mmol/L (135-145); Total Iron Binding Capacity 348 mcg/dL (228-428); Unsaturated Iron Binding 324 ug/dL
[2024-12-29 18:04] LABS: Ferritin 47 ng/mL (10-250)
== END 2024-12-29 15:32 | disposition home or self-care (01) ==
LOC: HO.LAB 15:31
PROVIDERS: PCP Internal Medicine; Visit Provider Internal Medicine Cardiovascular Disease
DX: I35.0 Nonrheumatic aortic (valve) stenosis (principal)
CPT/HCPCS: 36415; 80048; 82728; 83540; 83880; 85027

== ENCOUNTER 2025-02-01 14:05 | Outpatient (AMB) | payer OTHER, SELFPAY ==
--- NOTE | 2025-02-01 14:10 | MHC.OFFVIS ---
Vital Signs 02/01/25 14:12 Height 5 ft Weight 202 lb 13.204 oz BMI 39.6 BP 140/70 H Blood Pressure Location Lt brachial Position Sitting Pulse 85 Pulse Source Monitor Intake Visit Reasons: per KM Technical Mgr Required: No Accompanied by: Self / Same As Patient Allergies No Known Allergies Allergy (Verified 08/06/24 13:44) Medication List - Last Reconciled 02/01/25 by Evert Borrero MD blood pressure monitor (Blood Pressure Kit) As directed levothyroxine 75 mcg PO DAILY lisinopril 20 mg PO DAILY HPI Comments Details: Pleasant 80 year female who is here for follow-up. She was seen previously for aortic valve stenosis and underwent TAVR protocol CTA and had a surgical discussion. She had STS risk score of 3.25% which puts her in the intermediate risk category. 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 She previously was asymptomatic and continues to report no symptoms. She walked from 1 corridor to my office and was short of breath with that level of activity. She was shown the CT scan along with a nodular calcium in the LVOT and the associated risk of paravalvular leak and annular injury in case aggressive post dilation is done. Otherwise she had nothing to report currently and was here for routine discussion. [facility] Medical History Aortic stenosis Hypothyroidism Essential hypertension Surgical History History of colonoscopy (~07/13/16) Family History Mother Cancer Lung cancer Father Stomach cancer Social History Housing: Condominium Alcohol intake: current Alcohol intake frequency: holidays/special occasions only Patient Tobacco Use Status: Former Tobacco user service: No Current occupational status: employed Cognitive needs: No Hearing needs: No Vision needs: Yes (reading glasses) Review of Systems Const Denies chills, Denies fatigue, Denies fever(s), Denies frequent falls, Denies weakness, Denies weight gain and Denies weight loss ENT Denies dizziness Card Denies chest pain, Denies leg edema, Denies lightheadedness, Denies palpitations, Denies dyspnea and Denies dyspnea on exertion Resp Denies cough, Denies dyspnea and Denies dyspnea on exertion GI Denies hematochezia Musc Denies abnormal gait, Denies muscle weakness, Denies numbness, Denies radiating pain into limb and Denies tingling Neuro Denies abnormal gait, Denies dizziness, Denies frequent falls, Denies numbness, Denies tingling and Denies weakness Endo Denies fatigue and Denies palpitations Physical Exam Vital Signs: Last Vital Signs Pulse 85 02/01/25 14:12 BP 140/70 H 02/01/25 14:12 BMI result Body Mass Index 39.6 GENERAL APPEARANCE: in no acute distress, pleasant. NECK: no carotid bruit, no jugular venous distention. Delayed carotid upstrokes. SKIN: no suspicious lesions, warm and dry. HEART: Ejection systolic murmur aortic area with absent 2nd heart sound, regular rate and rhythm. LUNGS: clear to auscultation bilaterally. ABDOMEN: soft, nontender. EXTREMITIES: no edema. PERIPHERAL PULSES: equal. NEUROLOGIC: No gross deficits, AAO X 3 Assessment & Plan Assessment & Plan (1) Anemia: Code(s): D64.9 - Anemia, unspecified Category: Medical Qualifiers: Anemia type: unspecified type Qualified Code(s): D64.9 - Anemia, unspecified (2) Aortic stenosis: Code(s): I35.0 - Nonrheumatic aortic (valve) stenosis Category: Medical (3) Essential hypertension: Code(s): I10 - Essential (primary) hypertension Category: Medical Plan Pleasant 80-year-old female who is here for management of severe aortic valve stenosis. She had echocardiography performed in August 2024 which showed EF 50-55% with severe aortic valve stenosis with aortic valve area of 0.85 cm2 and mean gradient of 43 mm Hg. She was also noticed to have severe pulmonary hypertension with pulmonary artery systolic pressure is 62 mm Hg. Right ventricular function and size was normal. TAVR protocol CTA has shown LVOT calcification and there is some risk of paravalvular leak. I have explained to the patient that this is not prohibitive for TAVR although the risk for paravalvular leak and annular injury in case post dilation of valve is done is still possible. The patient is adamant that she had a discussion with her daughter and family and would not consider surgery. After detailed discussion about pros and cons of surgery versus transcatheter aortic valve replacement she wishes to undergo TAVR. I will have a discussion with Dr. Brunson and the TAVR team and would consider proceeding with TAVR. She previously had anemia and was advised to take iron which she has not tolerated. She will discuss with Hematology about IV iron. Thank you for allowing me to participate in the care of your patient. Please feel free to contact me if you have any questions. Coding Level of Care Code Est Pt Level 5 (56085) Diagnoses Anemia, unspecified type D64.9 Anemia type: unspecified type Aortic stenosis I35.0 Essential hypertension I10
[2025-02-01 14:12] VITALS: BP 140/70; PULSE 85; BMI 39.6
== END 2025-02-01 14:49 | disposition home or self-care (01) ==
LOC: HO.HCS 14:06
PROVIDERS: PCP Internal Medicine; Visit Provider Internal Medicine Cardiovascular Disease
DX: D64.9 Anemia, unspecified (principal); I35.0 Nonrheumatic aortic (valve) stenosis; I10 Essential (primary) hypertension; I49.3 Ventricular premature depolarization
CPT/HCPCS: 93010; 99215

== ENCOUNTER → 2025-02-01 14:05 | Outpatient (BNVA) | payer OTHER, SELFPAY | PROVIDERS: PCP Internal Medicine; Visit Provider Internal Medicine Cardiovascular Disease | DX: I10 Essential (primary) hypertension (principal); I35.0 Nonrheumatic aortic (valve) stenosis | CPT/HCPCS: 93005 ==

== ENCOUNTER 2025-02-19 10:16 | Outpatient (REF) | payer OTHER, SELFPAY ==
[2025-02-19 10:38] LABS: MANUAL DIFF FLAG NO
[2025-02-19 11:13] LABS: Hematocrit 29.4 % (37.0-47.0); Hemoglobin 9.1 g/dl (12.0-16.0); Imm Gran Abs Auto 0.04 X10*3/uL (0.00-0.03); Imm Gran Pct Auto 0.5 % (0.0-0.4); Lymphocytes Absolute Auto 1.2 X10*3/uL (1.2-4.9); Mean Corpuscular HGB Conc 31.0 g/dl (31.0-35.0); Mean Corpuscular Hemoglobin 27.0 pg (27.0-33.0); Mean Corpuscular Volume 87.2 fL (80.0-98.0); NRBC Abs Auto 0.000 X10*3/uL (0.0-0.012); NRBC Pct Auto 0.0 /100WBC (0.0-0.2); Platelet Count 320 X10*3/uL (160-400); Red Blood Count 3.37 X10*6/uL (4.20-5.50); White Blood Count 7.6 X10*3/uL (4.8-10.8)
[2025-02-19 11:14] LABS: Appearance Urine Clear; Glucose Urine UA Negative (Negative); PH 6.0 (5.0-9.0); Specific Gravity - Urine 1.025 (1.005-1.025); UMIC TRIGGER UA YES
[2025-02-19 11:53] LABS: Alanine Aminotransferase 7 U/L (0-31); Albumin Level 4.3 g/dL (3.5-5.0); Alkaline Phosphatase 196 U/L (39-117); Anion Gap 15 (12-20); Aspartate Amino Transferase 23 U/L (5-31); Blood Urea Nitrogen 16 mg/dL (9-16); Calcium 9.9 mg/dL (8.4-10.2); Carbon Dioxide 20 mmol/L (22-29); Chloride 114 mmol/L (96-108); Estimated Glomerular Filt Rate 60; Potassium 3.5 mmol/L (3.3-5.1); Sodium 145 mmol/L (135-145); Total Protein 6.9 g/dL (6.5-8.0)
[2025-02-19 12:04] LABS: Epith (RTE) Cast Present
[2025-02-19 12:22] LABS: HBS Num1 0.00 mIU/mL (0-7.99); HBc Num1 0.05 S/CO (0.00-0.79); HBsAGNum1 0.54 S/CO (0.00-0.99); HIV Num 1 0.19 S/CO (0.00-0.99); Hepatitis A Antibody IgM 0.18 Index (0-0.79); Hepatitis B Surface Antigen Negative (Negative); ~HepC Num1 0.10 S/CO (0.00-0.79); ~Hepatitis A Antibody IgM Nonreactive (Nonreactive); ~Hepatitis B Surface Antibody NONREACTIVE (Nonreactive); ~Hepatitis C Antibody Nonreactive (Nonreactive)
[2025-02-19 12:38] LABS: Uric Acid 5.9 mg/dL (2.4-5.7)
[2025-02-23 21:29] LABS: Prot Elec - Albumin 3.9 g/dL (3.8-4.8); Prot Elec - Alpha1 0.4 g/dL (0.2-0.3); Prot Elec - Alpha2 0.8 g/dL (0.5-0.9); Prot Elec - Beta 1 0.5 g/dL (0.4-0.6); Prot Elec - Beta 2 0.3 g/dL (0.2-0.5); Prot Elec - Gamma 0.6 g/dL (0.8-1.7); Prot Elec - Total Protein 6.5 g/dL (6.1-8.1)
[2025-02-25 12:38] LABS: PEU-Protein Creat Ratio Rand 0.396 (0.024-0.184); PEU-Rand. Prot/Creat Ratio 396 mg/g creat (24-184); PEU-Random Ur. Gamma Globulin 21 %; PEU-Random Urine A1 Globulin 6 %; PEU-Random Urine A2 Globulin 16 %; PEU-Random Urine Albumin 35 %; PEU-Random Urine Beta Globulin 22 %; PEU-Random Urine Creatinine 134 mg/dL (20-275); PEU-Random Urine Protein 53 mg/dL (5-24)
[2025-02-25 15:59] LABS: Kappa, Serum 175 mg/dL (176-443); Kappa/Lambda Ratio, Serum 1.84 (1.29-2.55); Lambda, Serum 95 mg/dL (91-240)
== END 2025-02-19 10:17 | disposition home or self-care (01) ==
LOC: HO.LAB 10:16
PROVIDERS: PCP Student in an Organized Health Care Education/Training Program; Visit Provider Student in an Organized Health Care Education/Training Program
DX: C80.1 Malignant (primary) neoplasm, unspecified (principal); S22.060A Wedge compression fracture of T7-T8 vertebra, initial encounter for closed fracture; I10 Essential (primary) hypertension; E03.9 Hypothyroidism, unspecified; I35.0 Nonrheumatic aortic (valve) stenosis
CPT/HCPCS: 80053; 81001; 82306; 82570; 82784; 83883; 84156; 84165; 84166; 84550; 85025; 85652; 86141; 86334; 86335; 86704; 86706; 86709; 86803; 87340; 87389

== ENCOUNTER 2025-02-19 10:48 | Outpatient (AMB) | payer OTHER, SELFPAY ==
--- NOTE | 2025-02-19 10:48 | MHC.PC.OV ---
Vital Signs 02/19/25 10:53 Height 5 ft BP 138/68 Blood Pressure Location Lt brachial Position Sitting Intake Visit Reasons: CA dx (see comments) Wood Coater Required: No Accompanied by: daughterEnio Allergies No Known Allergies Allergy (Verified 02/19/25 10:48) Tobacco use date assessed: 08/06/24 Dental Screening Dental Screen Date: 08/06/24 HPI HPI Comments History of Present Illness Details The patient is a 80-year-old female presenting with severe back pain. The pain initiated during an incident involving gardening activities, specifically pulling weeds and attempting to shut off a washing machine valve about two weeks prior to her visit. During this activity, she felt and heard a crack in her back while bent over the washing machine, which was further aggravated by poor ergonomics given her age. Since the initial injury, the back pain has progressively worsened, reaching a severity level of 10/10. It significantly impaired her planned activities and a vacation. Getting in and out of bed has become particularly painful, although Motrin offers some minor pain relief. The patient denies any weakness in the legs but reports significant pain that has affected her ability to walk comfortably. Additionally, there is a report of substantial weight loss of approximately 30-40 pounds over several months, initiated by a diet corresponding with the diagnosis of an aortic valve issue. She denied experiencing fevers, night sweats, or chills. Cardiovascular follow-up remains important due to an existing aortic valve issue which has not yet been surgically addressed. Medical History: - Hypertension, managed with lisinopril - Hypothyroidism, managed with levothyroxine - Previous diagnosis regarding aortic valve disease Surgical History: - None noted specifically; aortic valve surgery discussed but not yet performed. 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 - Lives alone, with a supportive community nearby, including a close friend. - Engaged in weight management through diet. [facility] Medical History (Updated 02/19/25 @ 11:24 by Sami Cummings MD) Compression fracture of T8 vertebra Malignant neoplasm Aortic stenosis Hypothyroidism Essential hypertension Surgical History History of colonoscopy (~07/13/16) Family History Mother Cancer Lung cancer Father Stomach cancer Social History Housing: Condominium Alcohol intake: current Alcohol intake frequency: holidays/special occasions only Patient Tobacco Use Status: Former Tobacco user service: No Current occupational status: employed Cognitive needs: No Hearing needs: No Vision needs: Yes (reading glasses) Questionnaire Thrive Questionnaire Date Thrive assessed: 08/06/24 JASMIN-7 AMB Questionnaire JASMIN-7 Date JASMIN - 7 assessed: 08/06/24 Source: Developed by Drs. Babar Huertas, Sandy Loomis, Yovani Quiles and colleagues, with an educational ana from [employer]. Review of Systems Const Details: - Musculoskeletal: Reports severe back pain. - Neurological: Denies weakness in legs. - Constitutional: Reports significant weight loss, denies fever, night sweats, or chills. All systems reviewed & are unremarkable except as reviewed in HPI and above Physical exam (Primary Care) Vital Signs: Last Vital Signs BP 138/68 02/19/25 10:53 Tobacco/Smoking Status: Tobacco use Status Tobacco use date assessed 08/06/24 02/19/25 10:54 Patient Tobacco Use Status Former Tobacco user 02/19/25 10:54 Thrive Assessment: Date of Thrive Assessment Date Thrive assessed 08/06/24 02/19/25 10:54 Const Other: General: +Alert and oriented, Well nourished, No acute distress. Eye: Pupils are equal, round and reactive to light, Intact accommodation, Extraocular movements are intact, Normal conjunctiva, Vision unchanged. HENT: Normocephalic, Atraumatic, Tympanic membranes are clear, Normal hearing, Oral mucosa is moist, No pharyngeal erythema, Ear canals patent. Respiratory: Lungs CTA bilaterally, No wheeze, Respirations are non-labored. Cardiovascular: Regular rate, Regular rhythm, S1 auscultated, S2 auscultated, No murmur, Good pulses equal in all extremities, Normal peripheral perfusion, No edema. Gastrointestinal: Soft, Non-tender, Non-distended, Normal bowel sounds, No organomegaly. Musculoskeletal: Normal range of motion, Normal strength, No tenderness, No swelling, No deformity, Normal gait. Tenderness around T8 Integumentary: Warm, Dry, [place], Intact. Neurologic: Alert, Oriented, Normal sensory, Normal motor function, No focal defects, Cranial Nerves II-XII are grossly intact, Normal deep tendon reflexes. Psychiatric: Cooperative, Appropriate mood & affect, Normal judgment. Coding Level of Care Code Est Pt Level 4 (94718) Complex EM visit Add On G2211 Diagnoses Compression fracture of T8 vertebra, initial encounter S22.060A Encounter type: initial encounter Malignant neoplasm C80.1 Essential hypertension I10 Hypothyroidism, unspecified type E03.9 Hypothyroidism type: unspecified Nonrheumatic aortic valve stenosis I35.0 Cardiac valve disease etiology: nonrheumatic Assessment & Plan Assessment & Plan (1) Compression fracture of T8 vertebra: Comment: - Discussion with patient about spinal fracture confirmed via MRI. (Completed at [facility]) - Consider possible intervention by neurosurgeons or spinal specialists if needed. - Prescribed Garfield for pain management with caution due to potential for constipation. - Advised use of lidocaine patches for localized pain relief. Code(s): S22.060A - Wedge compression fracture of T7-T8 vertebra, initial encounter for closed fracture Category: Medical Qualifiers: Encounter type: initial encounter Qualified Code(s): S22.060A - Wedge compression fracture of T7-T8 vertebra, initial encounter for closed fracture (2) Malignant neoplasm: Comment: - Patient notified about the suspicion of blood cancer, specifically myeloma based on imaging results. (Furthered by weight loss) - Referred to panama hat hydraulic press operator-oncologist for further evaluation and possible bone marrow biopsy. - Ongoing blood work to further assess anemia and clarify diagnosis. Code(s): C80.1 - Malignant (primary) neoplasm, unspecified Category: Medical (3) Essential hypertension: Comment: - Ensured continuation of current treatments with lisinopril Code(s): I10 - Essential (primary) hypertension Category: Medical (4) Hypothyroidism: Comment: - Ensured continuation of current treatments with levothyroxine. - Monitored for ongoing symptom management and potential adjustments for effective control. Code(s): E03.9 - Hypothyroidism, unspecified Category: Medical Qualifiers: Hypothyroidism type: unspecified Qualified Code(s): E03.9 - Hypothyroidism, unspecified (5) Aortic stenosis: Comment: - The patient recalls plans for surgical intervention but has not yet scheduled. - Encouraged to follow up with her hot plate plywood press feeder to determine appropriate next steps. Code(s): I35.0 - Nonrheumatic aortic (valve) stenosis Category: Medical Qualifiers: Cardiac valve disease etiology: nonrheumatic Qualified Code(s): I35.0 - Nonrheumatic aortic (valve) stenosis Plan: Health Maintenance: - Encouraged follow-up consultations for cardiovascular health and continual management of existing conditions. - Discussed potential risks of untreated back injury and importance of specialist evaluation. Patient was informed and verbally consented to the use of an ambient scribe for clinic note documentation during this visit. Plan I discussed in detail the suspicion of multiple myeloma based on MRI findings indicating spinal bone lesions. I explained the potential implications of these findings and the necessity of further specialist evaluation by a panama hat hydraulic press operator-oncologist. Options for management of severe back pain were explored, including conservative approaches and referral for possible surgical intervention. Choices surrounding analgesia were approached cautiously in accordance with patient age and functional status. The patient was informed about ongoing comprehensive blood work to determine the nature of her anemia and assist in the differential diagnosis. She understood the importance of continuing antihypertensive and hypothyroid medications and the role of lifestyle modifications in her management plan. I also addressed potential complications and discussed urgency around follow-ups, especially for her orthopedic and cardiovascular health concerns. Orders: Orders Comprehensive Met. Panel Today C80.1 - Malignant (primary) neoplasm, unspecified Pathologist Review - CBC Today C80.1 - Malignant (primary) neoplasm, unspecified Erythrocyte Sedimentation Rate Today C80.1 - Malignant (primary) neoplasm, unspecified CRP High Sensitivity Today C80.1 - Malignant (primary) neoplasm, unspecified Protein Electrophoresis,Ran Ur Today C80.1 - Malignant (primary) neoplasm, unspecified Immunofixation, Random Urine Today C80.1 - Malignant (primary) neoplasm, unspecified [place]/Lambda Light Chain Serum Today C80.1 - Malignant (primary) neoplasm, unspecified CD19 + CD20 Flow Cytometry Today C80.1 - Malignant (primary) neoplasm, unspecified UA and rflx microscopic Today C80.1 - Malignant (primary) neoplasm, unspecified Vitamin D 25-OH Total Today C80.1 - Malignant (primary) neoplasm, unspecified Complete Blood Count Auto Diff Today C80.1 - Malignant (primary) neoplasm, unspecified Protein Electrophoresis, Serum Today C80.1 - Malignant (primary) neoplasm, unspecified Immunofixation Pnl, Serum Today C80.1 - Malignant (primary) neoplasm, unspecified FISH,MM,IGH/FGFR3,t(4;14) Today C80.1 - Malignant (primary) neoplasm, unspecified FISH,MM,IGH/MAF,t(14:16) Today C80.1 - Malignant (primary) neoplasm, unspecified Hepatitis A,B,C Profile Today C80.1 - Malignant (primary) neoplasm, unspecified HIV Ab/Ag Today C80.1 - Malignant (primary) neoplasm, unspecified Uric Acid Today C80.1 - Malignant (primary) neoplasm, unspecified Referrals Hematology & Oncology Referral C80.1 - Malignant (primary) neoplasm, unspecified Medications: New hydrocodone-acetaminophen 5-325 mg Partial Fill upon patient request. 1 tab PO Q8H PRN 90 tabs 0RF pain 30 days polyethylene glycol 3350 (Miralax) 17 grams PO BID 100 ea 0RF lidocaine 5% leave on most painful area for up to 12 hrs 1 patch topical DAILY 30 ea 3RF Patient Instructions: - Apply lidocaine patch to the painful area on the back for 12 hours and then remove for 12 hours. - Take Garfield for back pain only as needed and avoid exceeding prescribed amounts. - Reach out for support with daily activities if pain inhibits normal tasks. - Provide hot plate plywood press feeder and workplace FMLA paperwork promptly for further authorization and continuation of care. - Schedule and attend follow-up with a panama hat hydraulic press operator-oncologist to explore the underlying potential for multiple myeloma. - Maintain regular communication with healthcare providers for ongoing monitoring and management. - Adopt safe practices at work, avoiding situations that may strain the back further. - Report any new or worsening symptoms immediately, including changes in leg function or systemic signs like fever.
[2025-02-19 10:53] VITALS: BP 138/68
== END 2025-02-19 11:18 | disposition home or self-care (01) ==
LOC: HO.HMCHD 10:49
PROVIDERS: PCP Internal Medicine; Visit Provider Student in an Organized Health Care Education/Training Program
DX: S22.060A Wedge compression fracture of T7-T8 vertebra, initial encounter for closed fracture (principal); C80.1 Malignant (primary) neoplasm, unspecified; I10 Essential (primary) hypertension; E03.9 Hypothyroidism, unspecified; I35.0 Nonrheumatic aortic (valve) stenosis

== ENCOUNTER 2025-02-23 15:24 | Outpatient (REF) | payer OTHER, SELFPAY ==
--- OUTSIDE RECORDS SUMMARY | 2024-09-18 07:50 | XMS_ITS ---
Author Organization [facility] Address [address] [place] [address] Care Team Providers Care Biomedical Engineering Director Name Role Phone BLAZE BONILLA Primary Care Provider Raoul Allen Jr [phone] REASON FOR VISIT fe def anemia Encounters Encounter Location Date Provider Diagnosis [facility] [place] [address] [place], [place] [phone] 09/18/2024 Raoul Rolon Jr Plan Of Treatment No Information Progress Notes * WINSTON CANODOB:[birth year] (80 yo F)Acc No.[id number]:09/18/2024 EGD and COL/MAC Patient: WINSTON REYES Provider: Amirah Rolon MD :1945 A ge:79 Y S ex:Female Date:09/18/2024 Address:[address] [place] [address], [address] Pcp:BLAZE BONILLA Subjective: * Chief Complaints: * [...] 09/18/2024 Generated for Printi ng/Faxing/eTransmitting on: 1 06:11 PM EDT
--- OUTSIDE RECORDS SUMMARY | 2024-11-20 08:30 | XMS_ITS ---
Author Organization [facility] Address [address] [place] [address] Care Team Providers Care Clinical Applications Manager Name Role Phone BLAZE BONILLA Primary Care Provider Raoul Allen Jr [phone] REASON FOR VISIT fe def anemia Encounters Encounter Location Date Provider Diagnosis [facility] [place] [address] [place], [place] [phone] 11/20/2024 Raoul Rolon Jr Plan Of Treatment No Information Progress Notes * WINSTON CANODOB:[birth year] (80 yo F)Acc No.[id number]:11/20/2024 EGD and COL/MAC Patient: WINSTON REYES Provider: Amirah Rolon MD :1945 A ge:79 Y S ex:Female Date:11/20/2024 Address:[address] [place] [address], [address] Pcp:BLAZE BONILLA Subjective: * Chief Complaints: * [...] 11/20/2024 Generated for Printi ng/Faxing/eTransmitting on: 1 06:11 PM EDT
[2025-02-23 16:05] LABS: Appearance Urine Cloudy; Glucose Urine UA Negative (Negative); PH 6.0 (5.0-9.0); Specific Gravity - Urine >= 1.030 (1.005-1.025); UMIC TRIGGER UA YES
--- OUTSIDE RECORDS SUMMARY | 2025-02-23 18:12 | XMS_ITS | Patient Health Record ---
Author Organization [facility] Address [address] [place] [address] Care Team Providers Care Major Gifts Director Name Role Phone CHAD, KARTIK Primary Care Provider Raoul Allen Jr [phone] Allergies No Known Allergies Reason For Referral [...] Problem Status W/U Status Risk Notes Problem Colon cancer screening (702813189) Colon cancer screening (Z12.11) Active confirmed Problem Pre-procedure evaluation check (025919729) Encounter for other preprocedural examination (Z01.818) Active confirmed Problem Iron deficiency anemia (22421530) Iron deficiency anemia, unspecified iron deficiency anemia type (D50.9) Active confirmed Vital Signs Temperature 98.0 degrees Fahrenheit 08/28/2024 Blood pressure diastolic 01 mm Hg 08/28/2024 Height 60.5 in 08/28/2024 Blood pressure systolic 001 mm Hg 08/28/2024 Weight 202 lbs 08/28/2024 BMI 38.8 kg/m2 08/28/2024 Encounters Encounter Location Date Provider Diagnosis [facility] [address] [place] [address] 08/28/2024 Raoul Rolon Jr Iron deficiency anemia, unspecified iron deficiency anemia type D50.9 [facility] [address] [place] [address] 08/14/2024 Raoulsaul Rolon Jr [facility] [address] [place] [address] 09/16/2024 Raoulsaul Rolon Jr [facility] [address] [place] [address] 10/29/2024 Raoul Rolon Jr Assessments Encounter Date [...] Insured Coverage Start Date Coverage End Date [facility] [address] [facility] [place] [phone] [id number] WINSTON CANO Self - patient is the insured Medical (General) History Medical History History ICD Code hypertension hypothyroidism depression
== END 2025-02-23 15:25 | disposition home or self-care (01) ==
LOC: HO.LAB 15:24
PROVIDERS: PCP Student in an Organized Health Care Education/Training Program; Visit Provider Student in an Organized Health Care Education/Training Program
DX: C80.1 Malignant (primary) neoplasm, unspecified (principal)
CPT/HCPCS: 36415; 81001; 81003; 88184; 88185; 88271; 88275

== ENCOUNTER → 2025-03-03 15:38 | Outpatient (BNV) | payer OTHER, SELFPAY | PROVIDERS: Visit Provider Internal Medicine | DX: D49.3 Neoplasm of unspecified behavior of breast (principal); D64.9 Anemia, unspecified; R93.7 Abnormal findings on diagnostic imaging of other parts of musculoskeletal system; M54.50 Low back pain, unspecified; R63.4 Abnormal weight loss; Z80.1 Family history of malignant neoplasm of trachea, bronchus and lung; Z80.0 Family history of malignant neoplasm of digestive organs | CPT/HCPCS: 99204; G2211 ==

== ENCOUNTER 2025-03-17 08:14 | Outpatient (REF) | payer OTHER, SELFPAY ==
--- OUTSIDE RECORDS SUMMARY | 2024-09-18 06:50 | XMS_ITS ---
Author Organization [facility] Address [address] [place] [address] Care Team Providers Care Evaluator Transfer Students Name Role Phone BLAZE BONILLA Primary Care Provider Raoul Allen Jr [phone] REASON FOR VISIT fe def anemia Encounters Encounter Location Date Provider Diagnosis [facility] [place] [address] [place], [place] [phone] 09/18/2024 Raoul Rolon Jr Plan Of Treatment No Information Progress Notes * WINSTON CANODOB:[birth year] (80 yo F)Acc No.[id number]:09/18/2024 EGD and COL/MAC Patient: WINSTON REYES Provider: Amirah Rolon MD :1945 A ge:79 Y S ex:Female Date:09/18/2024 Address:[address] [place] [address], [address] Pcp:BLAZE BONILLA Subjective: * Chief Complaints: * 1 . Fe def anemia. * Medical History: Objective: * Vitals: Assessment: Plan: * Treatment: * * The named appointment provid er may or may not be the originator of this progress note, and it is not deemed complete until electronically signed by the appointment provider. Sign off status: Pending * Provider: Amirah Rolon MD Date: 0 09/18/2024 Generated for Printi ng/Faxing/eTransmitting on: 05/17/2024 08:20 AM EST
--- OUTSIDE RECORDS SUMMARY | 2024-11-20 07:30 | XMS_ITS ---
Author Organization [facility] Address [address] [place] [address] Care Team Providers Care Grant Administrator Name Role Phone BLAZE BONILLA Primary Care Provider Raoul Allen Jr REASON FOR VISIT fe def anemia Encounters Encounter Location Date Provider Diagnosis [facility] [place] [address] [place], [place] [phone] 11/20/2024 Raoul Rolon Jr Plan Of Treatment No Information Progress Notes * WINSTON CANODOB:[birth year] (80 yo F)Acc No.[id number]:11/20/2024 EGD and COL/MAC Patient: WINSTON REYES Provider: Amirah Rolon MD :1945 A ge:79 Y S ex:Female Date:11/20/2024 Address:[address] [place] [address], [address] Pcp:BLAZE BONILLA Subjective: * Chief Complaints: * [...] * Provider: Amirah Rolon MD Date: 0 11/20/2024 Generated for Printi ng/Faxing/eTransmitting on: 1 05/17/2024 08:20 AM EST
--- NOTE | ~2025-03-17 | US_ITS ---
PROCEDURE: ULTRASOUND-GUIDED RIGHT BREAST BIOPSY Ultrasound-guided right axillary lymph node biopsy. CLINICAL INFORMATION: Solid irregular mass in the right breast and abnormal enlarged right axillary lymph nodes here for ultrasound-guided core needle biopsy of both sites. COMPARISON: [facility] on PACS. TECHNIQUE: The details of the procedure, as well as the risks, benefits, and alternatives to the procedure were explained to the patient in detail and all of her questions were answered, after which, written informed consent was obtained. PROCEDURE: Prior to the procedure, sonography revealed a solid irregular mass at 1:00 4 cm from the nipple on mammogram and ultrasound and enlarged axillary lymph nodes in the right axilla. The procedure was explained to the patient, including discussion of the risks and benefits, and written informed consent was obtained. A preprocedural time out was performed to confirm the pateint identity with multiple identifiers as well as the side, site of the procedure to be performed. Right breast a solid irregular mass 1:00 4 cm from the nipple: The lesion intended for biopsy was targeted and the skin of the right breast was then prepped and draped in the usual sterile fashion. Using sonographic guidance, sterile technique, and 1% lidocaine without epinephrine for local anesthesia, a total of 3 cores were obtained through the targeted area with a 14-gauge biopsy needle biopsy device. At the completion of tissue sampling, a single butterfly metallic clip was deposited at the biopsy site. An appropriate sample was obtained. Right breast irregular enlarged axillary lymph node: The lesion intended for biopsy was targeted and the skin of the right axilla was then prepped and draped in the usual sterile fashion. Using sonographic guidance, sterile technique, and 1% lidocaine without epinephrine for local anesthesia, a total of 4 cores were obtained through the targeted area with a 18-gauge biopsy needle biopsy device. At the completion of tissue sampling, a single [coil metallic clip was deposited at the biopsy site. An appropriate sample was obtained. The postprocedure 2-view direct digital mammogram reveals satisfactory positioning of the biopsy clip in the right breast the axillary clip was not seen. The patient tolerated the procedure well and, after assuring adequate hemostasis, was discharged in good condition after reviewing postbiopsy breast care instructions. Final pathology results are pending. US/US biopsy lymph node IMPRESSION: 1. Uncomplicated sonographically-guided core biopsy of the right breast and right axilla. The 2-view direct digital postprocedure mammogram reveals satisfactory positioning of the biopsy clip in the right breast the post procedural clip in the right axilla was not seen on post mammography imaging. 2. Final pathology results are pending. A separate report with final recommendations will be issued once these results are made available. Electronically signed by: Dominique Ely DO 03/17/2025 11:40 AM [facility] [place] [place]
--- NOTE | ~2025-03-17 | US_ITS ---
EXAMINATION: MM DIAGNOSTIC DIGITAL BREAST TOMOSYNTHESIS, BILATERAL Limited bilateral axillary ultrasound Limited right breast ultrasound. CLINICAL INFORMATION: Right breast palpable lump upper central breast posterior depth felt by patient's physician. Right axillary palpable lump. COMPARISON: Mammography: Comparison is made with relevant prior exams. TECHNIQUE: Digital breast mammography with tomosynthesis is performed in both the craniocaudal and mediolateral oblique views along with computer-aided detection (CAD). FINDINGS: There are scattered areas of fibroglandular density. Left: No suspicious masses calcifications or other abnormal findings. Marker clip in the lower inner breast from previous needle core biopsy. Targeted color Doppler ultrasound scanning in the left axilla demonstrates normal axillary tissue and a normal-appearing axillary lymph node. There is no sonographic abnormal finding. Right: Irregular mass with associated spiculation in the upper central breast measuring 59 x 39 mm correlating with the physician felt palpable lump. No suspicious calcifications or other abnormal findings. Targeted color Doppler ultrasound scanning in the upper central right breast demonstrates a solid irregular mass measuring 46 x 35 x 37 mm correlating with irregular solid mass on mammography. Targeted color Doppler ultrasound scanning in the right axilla demonstrates 2 abnormal lymph nodes with thickened cortices. Results are discussed with the patient at time of visit. US/US Breast BI Limited Mamm Only IMPRESSION: Left: Benign. Right: 1. Solid irregular mass in the upper central breast middle to posterior depth correlating irregular mass on ultrasound. Recommend ultrasound-guided biopsy at this time for confirmation. 2. Irregular right axillary lymph nodes on ultrasound. Recommend ultrasound-guided core needle biopsy at this time for confirmation. The findings and recommendations were discussed with the patient the procedure will be scheduled. The procedures will be performed today. ASSESSMENT: BI-RADS Category 4: Suspicious RECOMMENDATION: Biopsy recommended Electronically signed by: Dominique Ely DO 03/17/2025 11:04 AM [facility]
--- NOTE | ~2025-03-17 | US_ITS ---
PROCEDURE: ULTRASOUND-GUIDED RIGHT BREAST BIOPSY Ultrasound-guided right axillary lymph node biopsy. CLINICAL INFORMATION: Solid irregular mass in the right breast and abnormal enlarged right axillary lymph nodes here for ultrasound-guided core needle biopsy of both sites. COMPARISON: [facility] on PACS. TECHNIQUE: The details of the procedure, as well as the risks, benefits, and alternatives to the procedure were explained to the patient in detail and all of her questions were answered, after which, written informed consent was obtained. PROCEDURE: Prior to the procedure, sonography revealed a solid irregular mass at 1:00 4 cm from the nipple on mammogram and ultrasound and enlarged axillary lymph nodes in the right axilla. The procedure was explained to the patient, including discussion of the risks and benefits, and written informed consent was obtained. A preprocedural time out was performed to confirm the pateint identity with multiple identifiers as well as the side, site of the procedure to be performed. Right breast a solid irregular mass 1:00 4 cm from the nipple: The lesion intended for biopsy was targeted and the skin of the right breast was then prepped and draped in the usual sterile fashion. Using sonographic guidance, sterile technique, and 1% lidocaine without epinephrine for local anesthesia, a total of 3 cores were obtained through the targeted area with a 14-gauge biopsy needle biopsy device. At the completion of tissue sampling, a single butterfly metallic clip was deposited at the biopsy site. An appropriate sample was obtained. Right breast irregular enlarged axillary lymph node: The lesion intended for biopsy was targeted and the skin of the right axilla was then prepped and draped in the usual sterile fashion. Using sonographic guidance, sterile technique, and 1% lidocaine without epinephrine for local anesthesia, a total of 4 cores were obtained through the targeted area with a 18-gauge biopsy needle biopsy device. At the completion of tissue sampling, a single [coil metallic clip was deposited at the biopsy site. An appropriate sample was obtained. The postprocedure 2-view direct digital mammogram reveals satisfactory positioning of the biopsy clip in the right breast the axillary clip was not seen. The patient tolerated the procedure well and, after assuring adequate hemostasis, was discharged in good condition after reviewing postbiopsy breast care instructions. Final pathology results are pending. US/US breast ndl core biopsy RT IMPRESSION: 1. Uncomplicated sonographically-guided core biopsy of the right breast and right axilla. The 2-view direct digital postprocedure mammogram reveals satisfactory positioning of the biopsy clip in the right breast the post procedural clip in the right axilla was not seen on post mammography imaging. 2. Final pathology results are pending. A separate report with final recommendations will be issued once these results are made available. Electronically signed by: Dominique Ely DO 03/17/2025 11:40 AM [facility]
--- OUTSIDE RECORDS SUMMARY | 2025-03-17 08:20 | XMS_ITS | Patient Health Record ---
Author Organization [facility] Address [address] [place] [address] Care Team Providers Care Director Of Business Systems Name Role Phone CHAD, KARTIK Primary Care [...] Status Risk Notes Problem Colon cancer screening (286085625) Colon cancer screening (Z12.11) Active confirmed Problem Pre-procedure evaluation check (862415196) Encounter for other preprocedural examination (Z01.818) Active confirmed Problem Iron deficiency anemia (78465472) Iron deficiency anemia, unspecified iron deficiency anemia type (D50.9) Active confirmed Vital Signs Temperature 98.0 degrees Fahrenheit 08/28/2024 Blood pressure diastolic 01 mm Hg 08/28/2024 Height 60.5 in 08/28/2024 Blood pressure systolic 001 mm Hg 08/28/2024 Weight 202 lbs 08/28/2024 BMI 38.8 kg/m2 08/28/2024 Encounters Encounter Location Date Provider Diagnosis [facility] [address] [place] [address] 08/28/2024 Raoul Rolon Jr Iron deficiency anemia, unspecified iron deficiency anemia type D50.9 [facility] [address] [place] [address] 08/14/2024 Raoulsaul Rolon Jr [facility] [address] [place] [address] 09/16/2024 Raoulsaul Rolon Jr [facility] [address] [place] [address] 10/29/2024 Raoul Rolon Jr Assessments Encounter Date [...] Insured Coverage Start Date Coverage End Date [facility] [address] [facility] [place] [phone] [id number] WINSTON CANO Self - patient is the insured Medical (General) History Medical History History ICD Code hypertension hypothyroidism depression
[2025-03-17] MEDS: Lidocaine HCl 1 % 20 ML VIAL 18 ML SUBCUT (11:00)
== END 2025-03-17 08:15 | disposition home or self-care (01) ==
LOC: HO.MAMMO 08:14
PROVIDERS: PCP Student in an Organized Health Care Education/Training Program; Visit Provider Internal Medicine
DX: C50.211 Malignant neoplasm of upper-inner quadrant of right female breast (principal); C50.611 Malignant neoplasm of axillary tail of right female breast
CPT/HCPCS: 19083; 38505; 76642; 76942; 77062; 77065; 77066; 88305; 88341; 88342; 88360; A4648; J2003

== ENCOUNTER → 2025-03-17 09:30 | Outpatient (BNV) | payer OTHER, SELFPAY | PROVIDERS: PCP Student in an Organized Health Care Education/Training Program; Visit Provider Internal Medicine | DX: N63.10 Unspecified lump in the right breast, unspecified quadrant (principal); R59.0 Localized enlarged lymph nodes | CPT/HCPCS: 38505; 76642; 76942; 77066; G0279 ==

== ENCOUNTER 2025-03-18 10:47 | Outpatient (AMB) | payer OTHER, SELFPAY ==
--- OUTSIDE RECORDS SUMMARY | 2024-09-18 06:50 | XMS_ITS ---
Author Organization [facility] Address [address] [place] [address] Care Team Providers Care Supervisor Insulation Name Role Phone BLAZE BONILLA Primary Care Provider Raoul Allen Jr [phone] REASON FOR VISIT fe def anemia Encounters Encounter Location Date Provider Diagnosis [facility] [place] [address] [place], [place] [phone] 09/18/2024 Raoul Rolon Jr Plan Of Treatment No Information Progress Notes * WINSTON CANODOB:[birth year] (80 yo F)Acc No.[id number]:09/18/2024 EGD and COL/MAC Patient: WINSTON REYES Provider: Amirah Rolon MD :1945 A ge:79 Y S ex:Female Date:09/18/2024 Address:[address] [place] [address], [address] Pcp:BLAZE BONILLA Subjective: * Chief Complaints: * [...] 0 09/18/2024 Generated for Printi ng/Faxing/eTransmitting on: 1 05/18/2024 01:06 PM EST
--- OUTSIDE RECORDS SUMMARY | 2024-11-20 07:30 | XMS_ITS ---
Author Organization [facility] Address [address] [place] [address] Care Team Providers Care Meat Process Worker Name Role Phone BLAZE BONILLA Primary Care Provider Raoul Allen Jr REASON FOR VISIT fe def anemia Encounters Encounter Location Date Provider Diagnosis [facility] [place] [address] [place], [place] [phone] 11/20/2024 Raoul Rolon Jr Plan Of Treatment No Information Progress Notes * WINSTON CANODOB:[birth year] (80 yo F)Acc No.[id number]:11/20/2024 EGD and COL/MAC Patient: WINSTON REYES Provider: Amirah Rolon MD :1945 A ge:79 Y S ex:Female Date:11/20/2024 Address:[address] [place] [address], [address] Pcp:BLAZE BONILAL Subjective: * Chief Complaints: * 1 . [...] 11/20/2024 Generated for Printi ng/Faxing/eTransmitting on: 1 05/18/2024 01:06 PM EST
--- NOTE | 2025-03-18 07:48 | MHC.PC.OV ---
Vital Signs 03/18/25 10:53 Height 5 ft Weight 174 lb BMI 34.0 BP 190/84 H Blood Pressure Location Lt brachial Position Sitting Respiration 22 H Pulse 69 Pulse Source Pulse Oximeter Temp 97.4 F Temp Source Temporal Artery Scan Pulse Oximetry (%) 97 Oxygen Delivery Method Room Air Intake Visit Reasons: 1 month f/u Floor Covering Layer Required: No Accompanied by: Self / Same As Patient Allergies No Known Allergies Allergy (Verified 03/18/25 07:53) Medication List - Last Reconciled 03/18/25 by Sami Cummings MD blood pressure monitor (Blood Pressure Kit) As directed hydrochlorothiazide 12.5 mg PO DAILY hydrocodone-acetaminophen 5-325 mg 1 tab PO Q8H 16 days levothyroxine 75 mcg PO DAILY lidocaine 5% 1 patch topical DAILY PRN lisinopril 30 mg PO DAILY polyethylene glycol 3350 (Miralax) 17 grams PO BID Tobacco use date assessed: 03/18/25 Fall risk assessment: No Falls in past year Last assessed Fall Risk: 03/18/25 Dental Screening Dental Screen Date: 03/18/25 Did you have a dental visit in the last 12 months?: Yes Did you have a dental problem in the last 6 months where you did not have access to dental care?: No HPI HPI Comments History of Present Illness Details The patient is a 80-year-old female presenting for follow-up after a recent breast biopsy and management of multiple chronic conditions, including hypertension and new-onset peripheral edema. The patient underwent a breast biopsy yesterday for a 4 cm mass that was found on a mammogram, and she notes some tenderness at the site. She has a history of a compression fracture of the T8 vertebra, which is suspected to be a pathologic fracture from metastatic cancer. She has not received a formal diagnosis, as biopsy results are pending, and has a bone scan and CAT scan scheduled. Her last mammogram prior to the recent one was in 2010. The patient has a history of hypertension, with recent blood pressures noted to be very high despite being on lisinopril 20 mg. She reports the new onset of bilateral ankle and foot swelling, which worsens throughout the day and is improved with leg elevation. She has a known history of aortic stenosis and is now experiencing shortness of breath when going up stairs. She has had a prior echocardiogram and MRI. Her other medical history includes hypothyroidism, for which she takes levothyroxine 75 mcg daily on an empty stomach. She experiences back pain related to her T8 fracture but remains ambulatory. She uses lidocaine patches as needed for pain with some relief and notes that narcotic pain medications cause constipation. Medical History: - Hypertension - Aortic stenosis - Hypothyroidism - Compression fracture of T8 vertebra, suspected to be pathologic - Breast mass (4cm) - Varicose veins of lower extremities - History of back pain Surgical History: - Breast biopsy Medications: - Lisinopril 20 mg for hypertension - Levothyroxine 75 mcg for hypothyroidism - Lidocaine patches as needed for pain - Unspecified narcotic pain medication Family History: No family history was discussed. Diagnostic Results: - Mammogram: Revealed a 4 cm lesion in the breast. Social History: - Employment: The patient is employed and stated she would rather be at work. - Functional Status: The patient is ambulatory despite her back pain but reports shortness of breath when climbing stairs. [facility] Medical History (Updated 03/18/25 @ 11:18 by Sami Cummings MD) Peripheral edema Breast mass Compression fracture of T8 vertebra Malignant neoplasm Aortic stenosis Hypothyroidism Essential hypertension Surgical History History of colonoscopy (~07/13/16) Family History Mother Lung cancer Cancer Father Stomach cancer Daughter Cervical cancer HTN (hypertension) Social History Household Members: None [facility] Alcohol intake: current Alcohol intake frequency: holidays/special occasions only Patient Tobacco Use Status: Former Tobacco user Tobacco use type: Cigarette service: No Current occupational status: employed Current occupation: [employer] Cognitive needs: No Hearing needs: No Vision needs: Yes (reading glasses) Questionnaire PHQ-9 Over the last 2 weeks, how often have you been bothered by any of the following problems? 1. Little interest or pleasure in doing things: not at all 2. Feeling down, depressed, or hopeless: not at all 3. Trouble falling or staying asleep, or sleeping too much: not at all 4. Feeling tired or having little energy: not at all 5. Poor appetite or overeating: not at all 6. Feeling bad about yourself - or that you are a failure or have let yourself or your family down: not at all 7. Trouble concentrating on things, such as reading the newspaper or watching television: not at all 8. Moving or speaking so slowly that other people could have noticed. Or the opposite - being so fidgety or restless that you have been moving around a lot more than usual: not at all 9. Thoughts that you would be better off or of hurting yourself in some way: not at all Total score: 0 Source: Developed by Drs. Babar Huertas, Sandy Loomis, Yovani Quiles and colleagues, with an educational ana from [facility]. Thrive Questionnaire Date Thrive assessed: 03/18/25 I am a: Patient Within the past 12 months, did the food you bought not last and you didn't have the money to get more?: Never true Within the past 12 months, did you worry whether your food would run out before you got money to buy more?: Never true Do you have trouble paying for medicines?: No Do you have trouble getting transportation to medical appointments?: No Do you have trouble paying your heating and electricity bill?: No Do you have trouble taking care of your child, family member or friend?: No Do you have trouble with day-to-day activities such as bathing, preparing meals, shopping, managing finances, etc.?: No Are you currently unemployed and looking for a job?: No Are you interested in more education?: No THRIVE Score: 0 AUDIT C Alcohol Use Questionnaire (AUDIT-C) 1. How often do you have a drink containing alcohol?: Never 3. How often do you have six or more drinks on one occasion?: Never Total Score: 0 JASMIN-7 AMB Questionnaire JASMIN-7 Date JASMIN - 7 assessed: 03/18/25 Feeling nervous, anxious, or on edge: 0 = Not at all Not being able to stop or control worryin = Not at all Worrying too much about different things: 0 = Not at all Trouble relaxin = Not at all Being so restless that it is hard to sit still: 0 = Not at all Becoming easily annoyed or irritable: 0 = Not at all Feeling afraid as if something awful might happen: 0 = Not at all Total JASMIN-7 score (0-4 normal; 5-9 mild; 10-14 moderate; 15-21 severe): 0 Source: Developed by Drs. Babar Huertas, Sandy Loomis, Yovani Quiles and colleagues, with an educational ana from [facility]. Review of Systems Narrative - General: Reports feeling well overall. - Cardiovascular: Reports new onset of bilateral pedal edema. - Respiratory: Reports dyspnea on exertion when going up stairs. - Musculoskeletal: Reports back pain and tenderness at the recent breast biopsy site. - Gastrointestinal: Reports constipation caused by pain medication. All systems reviewed & are unremarkable except as reviewed in HPI and above Physical exam (Primary Care) Vital Signs: Last Vital Signs Temp 97.4 F 03/18/25 10:53 Pulse 69 03/18/25 10:53 Resp 22 H 03/18/25 10:53 BP 190/84 H 03/18/25 10:53 Pulse Ox 97 03/18/25 10:53 Oxygen Delivery Method Room Air 03/18/25 10:53 BMI result Body Mass Index 34.0 Tobacco/Smoking Status: Tobacco use Status Tobacco use date assessed 03/18/25 03/18/25 07:55 Patient Tobacco Use Status Former Tobacco user 03/18/25 07:49 Tobacco use type Cigarette 03/18/25 07:49 PHQ-9: PHQ-9 Score PHQ-9: Total score 0 03/18/25 10:57 Thrive Assessment: Date of Thrive Assessment Date Thrive assessed 03/18/25 03/18/25 07:55 Narrative General: +Alert and oriented, Well nourished, No acute distress. Eye: Pupils are equal, round and reactive to light, Intact accommodation, Extraocular movements are intact, Normal conjunctiva, Vision unchanged. HENT: Normocephalic, Atraumatic, Tympanic membranes are clear, Normal hearing, Oral mucosa is moist, No pharyngeal erythema, Ear canals patent. Respiratory: Lungs CTA bilaterally, No wheeze, Respirations are non-labored, Shortness of breath noted, especially when going up stairs. Cardiovascular: Regular rate, Regular rhythm, S1 auscultated, S2 auscultated, Murmur present, Good pulses equal in all extremities, Normal peripheral perfusion, Edema noted in ankles and feet. Gastrointestinal: Soft, Non-tender, Non-distended, Normal bowel sounds, No organomegaly. Musculoskeletal: Normal range of motion, Normal strength, No tenderness, No swelling, No deformity, Normal gait, Compression fracture noted at T8. Integumentary: Warm, Dry, [place], Intact. Neurologic: Alert, Oriented, Normal sensory, Normal motor function, No focal defects, Cranial Nerves II-XII are grossly intact, Normal deep tendon reflexes. Psychiatric: Cooperative, Appropriate mood & affect, Normal judgment. Established patient with multiple serious problems: suspected metastatic breast cancer with pathologic T8 compression fracture (ongoing pain management), symptomatic aortic stenosis with new dyspnea on exertion requiring cardiology re-evaluation for valve intervention, and severely uncontrolled hypertension necessitating medication intensification (increase lisinopril; initiate hydrochlorothiazide). Reviewed recent biopsy and coordinated pending bone scan/CT. Prescription drug management and escalation performed. Overall risk high. Coding Level of Care Code Est Pt Level 5 (03575) Complex EM visit Add On G2211 Diagnoses Essential hypertension I10 Mass of right breast, unspecified quadrant N63.10 Laterality: right Breast mass location: unspecified quadrant Compression fracture of T8 vertebra, initial encounter S22.060A Encounter type: initial encounter Nonrheumatic aortic valve stenosis I35.0 Cardiac valve disease etiology: nonrheumatic Hypothyroidism, unspecified type E03.9 Hypothyroidism type: unspecified Peripheral edema R60.9 Assessment & Plan Assessment & Plan (1) Essential hypertension: Comment: - The patient's blood pressure is significantly elevated and uncontrolled on her current regimen. - The dose of lisinopril will be increased from 20 mg to 30 mg daily. - Hydrochlorothiazide will be initiated to further help lower blood pressure and address the concurrent peripheral edema. - The patient was instructed to monitor her blood pressure daily at home or work and to bring a log of the readings to her follow-up appointment. - A follow-up visit is scheduled in two weeks to reassess blood pressure control. Code(s): I10 - Essential (primary) hypertension Category: Medical (2) Breast mass: Comment: - The patient has a 4 cm breast mass identified on a mammogram and underwent a biopsy yesterday. - This is a possible primary malignancy, given the suspicion of metastatic disease causing a vertebral fracture. - The plan is to await biopsy results; the oncology team is expected to contact the patient in 3-5 days. Code(s): N63.0 - Unspecified lump in unspecified breast Category: Medical Qualifiers: Laterality: right Breast mass location: unspecified quadrant Qualified Code(s): N63.10 - Unspecified lump in the right breast, unspecified quadrant (3) Compression fracture of T8 vertebra: Comment: - The patient has a compression fracture of the T8 vertebra, which is causing back pain and is suspected to be a pathologic fracture from metastatic cancer. - Pain management will continue with lidocaine patches and as-needed narcotic pain medication, for which a new prescription was sent. - A bone scan and CAT scan are scheduled for further evaluation. Code(s): S22.060A - Wedge compression fracture of T7-T8 vertebra, initial encounter for closed fracture Category: Medical Qualifiers: Encounter type: initial encounter Qualified Code(s): S22.060A - Wedge compression fracture of T7-T8 vertebra, initial encounter for closed fracture (4) Aortic stenosis: Comment: - The patient has a known history of aortic stenosis and is now symptomatic with dyspnea on exertion. - A murmur was noted on exam. - The patient was strongly advised to contact her lapper to discuss the timing of a valve replacement procedure, especially given the potential for complicating factors from a malignancy diagnosis and treatment. Code(s): I35.0 - Nonrheumatic aortic (valve) stenosis Category: Medical Qualifiers: Cardiac valve disease etiology: nonrheumatic Qualified Code(s): I35.0 - Nonrheumatic aortic (valve) stenosis (5) Hypothyroidism: Comment: - The patient's hypothyroidism is considered stable on her current medication regimen. - She will continue taking levothyroxine 75 mcg daily. Code(s): E03.9 - Hypothyroidism, unspecified Category: Medical Qualifiers: Hypothyroidism type: unspecified Qualified Code(s): E03.9 - Hypothyroidism, unspecified (6) Peripheral edema: Comment: - The patient has new-onset bilateral pedal edema, which is likely multifactorial. - The initiation of hydrochlorothiazide is expected to alleviate the swelling. - The patient was advised to elevate her legs when sitting to help reduce the edema. Code(s): R60.9 - Edema, unspecified Category: Medical Plan: Health Maintenance: - Mammogram screening: The patient had not undergone a mammogram since 2010 until her recent imaging. - Further imaging: A bone scan and a CAT scan are scheduled. - Blood pressure monitoring: The patient was advised to monitor her blood pressure daily and maintain a log. Patient was informed and verbally consented to the use of an ambient scribe for clinic note documentation during this visit. Plan I explained to the patient that her blood pressure is very high and that we need to get it under control, as this will be a requirement for any potential surgical procedures. I discussed the plan to increase her lisinopril to 30 mg and start hydrochlorothiazide, which should also help her new leg swelling. We discussed that we are awaiting the results of her breast biopsy for the 4 cm mass and that her T8 spine fracture is concerning for a pathologic fracture from metastatic cancer. I strongly recommended she contact her lapper regarding her aortic stenosis, as her new symptom of shortness of breath suggests it may be time for valve replacement, and it would be best to address this before any potential cancer treatments might complicate the procedure. I instructed her to monitor her blood pressure at home and scheduled a follow-up visit in two weeks to reassess her treatment plan. Medications: New hydrochlorothiazide 12.5 mg PO DAILY 30 caps 0RF lisinopril 30 mg PO DAILY 30 tabs 0RF Changed From hydrocodone-acetaminophen 5-325 mg Partial Fill upon patient request. 1 tab PO Q8H 16 days 48 tabs 0RF pain To hydrocodone-acetaminophen 5-325 mg Partial Fill upon patient request. 1 tab PO Q8H 90 tabs 0RF pain 30 days From lidocaine 5% leave on most painful area for up to 12 hrs 1 patch topical DAILY PRN To lidocaine 5% leave on most painful area for up to 12 hrs 1 patch topical DAILY 30 ea 0RF Discontinued lisinopril Discontinued Reason: Doctor's Order 20 mg PO DAILY 90 tabs 3RF Patient Instructions: - Start taking the new blood pressure pill, hydrochlorothiazide, when you get it. - Stop taking your lisinopril 20 mg and start the new prescription for lisinopril 30 mg. - Continue taking your thyroid medication (levothyroxine) in the morning on an empty stomach. - Keep your legs propped up when you are sitting to help with the swelling in your feet. - Check your blood pressure every day, write down the numbers, and bring the list to your next appointment. - Contact your heart doctor to discuss your aortic valve, as you are getting short of breath. - The oncology office will call you with your biopsy results in 3 to 5 days. - Complete your scheduled bone scan and CAT scan. - Please return for a follow-up appointment in two weeks.
[2025-03-18 10:53] VITALS: BP 190/84; PULSE 69; RESP 22; TEMP 36.3; O2SAT 97; BMI 34.0
--- OUTSIDE RECORDS SUMMARY | 2025-03-18 13:06 | XMS_ITS | Patient Health Record ---
Author Organization [facility] Address [address] [place] [address] Care Team Providers Care Rf Design Engineer Name Role Phone CHAD, KARTIK Primary Care Provider Raoul Allen Jr [phone] Allergies No Known Allergies Reason For Referral [...] Status Risk Notes Problem Colon cancer screening (596581009) Colon cancer screening (Z12.11) Active confirmed Problem Pre-procedure evaluation check (240514519) Encounter for other preprocedural examination (Z01.818) Active confirmed Problem Iron deficiency anemia (50817446) Iron deficiency anemia, unspecified iron deficiency anemia type (D50.9) Active confirmed Vital Signs Temperature 98.0 degrees Fahrenheit 08/28/2024 Blood pressure diastolic 01 mm Hg 08/28/2024 Height 60.5 in 08/28/2024 Blood pressure systolic 001 mm Hg 08/28/2024 Weight 202 lbs 08/28/2024 BMI 38.8 kg/m2 08/28/2024 Encounters Encounter Location Date Provider Diagnosis [facility] [address] [place] [address] 08/28/2024 Raoul Rolon Jr Iron deficiency anemia, unspecified iron deficiency anemia type D50.9 [facility] [address] [place] [address] 08/14/2024 Raoulsaul Rolon Jr [facility] [address] [place] [address] 09/16/2024 Raoulsaul Rolon Jr [facility] [address] [place] [address] 10/29/2024 Raoul Rolon Jr Assessments Encounter Date [...] Insured Coverage Start Date Coverage End Date [facility] [address] [facility] [place] [id number] [phone] [id number] WINSTON CANO Self - patient is the insured Medical (General) History Medical History History ICD Code hypertension hypothyroidism depression
--- OUTSIDE RECORDS SUMMARY | 2025-03-18 13:07 | XMS_ITS | Data Portability ---
Author Organization [facility], ZEESHAN Joe PT Address [address] [place] [address] Care Team Providers [employer] Underground Utility Locator Name Role Phone BHANU DUENAS Primary Care Provider Assessment No assessment recorded. Plan of Treatment Reminders Order Date Submit Date Provider Last Modified By Organization Details Last Modified Time Details Appointments None recorded. Lab None recorded. Referral None recorded. Procedures None recorded. Surgeries None recorded. Imaging MRI, thoracic spine, w/o contrast 2024 025 [facility] ([facility]), [address], [place], [address], 5 09:01:36 XR, thoracic spine, 3 view - new pt 3 views t spine rm u/c 3 [address], [address], [address], [place], [address], 5 12:18:44 Medication Orders None recorded. Patient TargetsNo targets recorded. Patient InstructionsNo instructions recorded. Reason for Referral None Reported. Results Created Date Observation Date Name Description Value Unit Range Abnormal Flag Note LastModifiedBy Organization Detail LastModifiedTime 01/15/2001/14/2025 XR, thora cic spine , 3 view [email or web address] ?Encry pted=s hAaTro YD8dLq bEUv6g %2BXZw aYqtaq 0bqfl% 2Fg9IQ a4ajBk vP9nXo QUaueC m3YtLR FvZlgJ JJ8mAn HZtai3 2t5146 AC0Klb 3SBUqK nKiQtr MwF INTERFACE [facility] [address], [place], [address], 01/14/2025 10:08:19 01/15/20 25 01/14/2025 XR, howarda cic spine , 3 view [email or web address] ?Encry pted=s hAaTro YD8dLq bEUv6g %2BXZw aYqtaq 0bqfl% 2Fg9IQ a4ajBk vP9nXo QUaueC m3YtLR FvZlgJ JJ8mAn HZtai3 5p3696 AC0Klb 3SBUqK nKiQtr MwF INTERFACE [facility] [address], [place], [address], 01/14/2025 10:08:21 02/19/20 25 02/15/2025 MRI, juan cic spine , w/o contr ast [facility] Access ion Number : [id number] Patien t [facility] : [id number] Date of : 1944 Date of Exam: 2024 Referr ing Physic sonu: [facility], [facility] ([facility] [address], [address] [place] [address] Exam: MR Thorac ic Spine (C-) CPT 01333 Room Descri ption: [place] Siem Espr 1.5 MRI Thorac ic Spine W/O Contra st INDICA TION: S22.00 0G - Wedge compre ssion fractu re of unspec ified thorac ic verteb ra, subseq uent encoun ter for fractu re with delaye d jasiel g, , , Rule Out: T-Spin e Compre ssion fractu re TECHNI QUE: Multip lanar, multis equenc e MRI of the thorac ic spine was perfor med withou t contra st. COMPAR VERNON: Correl ation with CT perfor med 11/19/19 25. FINDIN GS: LOCALI ZER: No additi onal findin gs on limite d locali zer images . ALIGNM ENT, VERTEB ALEIDA, MARROW , AND DISCS: Mild anteri or wedge compre ssion deform ity of T8 with marrow edema which is new from the previo us CT. In additi on, there are dean us T1 hypoin tense STIR hyperi ntense lesion s throug hout the visual ized skelet al struct ures includ ing the verteb ral bodies and wool shearing supervisor ior elemen ts throug hout the thorac ic spine and the visual ized lumbar spine as well as probab ly also in the cervic al spine on the locali zer images includ ing at C5-C7 and likely also at C3 lesion s appear to involv e multip le ribs as well, for exampl e the left eighth rib and the left sixth rib as well as the right eighth rib. No defini te correl ate on the previo us CT. Remain ing verteb ral body height s are mainta ined. There are multil evel degene rative change s with endpla te osteop hytes, disc desicc ation, and loss of interv ertebr al disc height . CORD: The thorac ic cord is normal in signal and contou r. No cord compre ssion or bulky epidur al tumor. PARASP INAL TISSUE S: There is atroph y of the wool shearing supervisor ior parasp inal muscul ature. There may be a thin rind of prever tebral soft tissue thicke alina on the right at the T4-T5 level which could reflec t extrao sseous extens ion of tumor as well as prever tebral soft tissue thicke alina at the T8 and T9 levels which could also reflec t tumor extens ion. Renal cysts are noted. Atroph y of the parasp inal muscul ature. FINDIN GS BY LEVEL: There are multip le disc protru sions and there is multil evel facet arthro glen. Mild left-s ided canal narrow ing at T7-T8 due to a disc protru ermelinda. No high-g rade centra l stenos is or neural forami nal narrow ing is seen at any level in the thorac ic spine. IMPRES ERMELINDA: Diffus e osseou s metast asis versus myelom a. Mild compre ssion fractu re of T8 withou t signif icant retrop ulsion , which may be a pathol ogic fractu re given the backgr ound findin gs concer alina for malign rubi. WSN: [id number] Orderi ng Physic sonu: Gilda Mendoza onical ly Signed By: Madelyn aleman MD [email or web address] [facility] ([facility]) [address], [place], [address], 02/18/2025 15:30:10 Result Notes Documentation Provider Name and Address Organization Details Recorded Time Xr, Thoracic Spine, 3 View : [email or web address] Encrypted=glNuEkpJP9tRciB Uv6g%4PRLukCoqpl5nxel%2Fg 8VHm8vfSlgG3eXfXSpehBu6Br TADlCmyZKK2gEuNXnpv00o360 7HS0Rmy4YRYnJlVcEpaClJ Not Available [facility] 01/14/2025 10:08:19 Xr, Thoracic Spine, 3 View : [email or web address] Encrypted=szChGjcYA6nJfrS Uv6g%1FGSkwAktpf7zyxz%2Fg 1NZd3umQstL8iNpAMcuyUv8Ry QZEnGqtWXY3aUrXQjtx77b037 5GS3Jqm7AMJoNyVbDneSlH Not Available [facility] 01/14/2025 10:08:21 Mri, Thoracic Spine, W/o Contrast : [facility] Accession Number: [id number] Patient Name: Nelida Das Date of : 1945 Date of Exam: 02-15-2025 Referring Physician: Tavia Medina [facility] ([facility]) [address], [address] [place] [address] Exam: MR Thoracic Spine (C-) CPT 36065 Room Description: [facility] Espr 1.5 MRI Thoracic Spine W/O Contrast INDICATION: S22.000G - Wedge compression fracture of unspecified thoracic vertebra, subsequent encounter for fracture with delayed healing, , , Rule Out: T-Spine Compression fracture TECHNIQUE: Multiplanar, multisequence MRI of the thoracic spine was performed without contrast. COMPARISON: Correlation with CT performed 11/18/2024. FINDINGS: LOCALIZER: No additional findings on limited localizer images. ALIGNMENT, VERTEBRAE, MARROW, AND DISCS: Mild anterior wedge compression deformity of T8 with marrow edema which is new from the previous CT. In addition, there are numerous T1 hypointense STIR hyperintense lesions throughout the visualized skeletal structures including the vertebral bodies and posterior elements throughout the thoracic spine and the visualized lumbar spine as well as probably also in the cervical spine on the localizer images including at C5-C7 and likely also at C3 lesions appear to involve multiple ribs as well, for example the left eighth rib and the left sixth rib as well as the right eighth rib. No definite correlate on the previous CT. Remaining vertebral body heights are maintained. There are multilevel degenerative changes with endplate osteophytes, disc desiccation, and loss of intervertebral disc height. CORD: The thoracic cord is normal in signal and contour. No cord compression or bulky epidural tumor. PARASPINAL TISSUES: There is atrophy of the posterior paraspinal musculature. There may be a thin rind of prevertebral soft tissue thickening on the right at the T4-T5 level which could reflect extraosseous extension of tumor as well as prevertebral soft tissue thickening at the T8 and T9 levels which could also reflect tumor extension. Renal cysts are noted. Atrophy of the paraspinal musculature. FINDINGS BY LEVEL: There are multiple disc protrusions and there is multilevel facet arthropathy. Mild left-sided canal narrowing at T7-T8 due to a disc protrusion. No high-grade central stenosis or neural foraminal narrowing is seen at any level in the thoracic spine. 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 Mild compression fracture of T8 without significant retropulsion, which may be a pathologic fracture given the background findings concerning for malignancy. WSN: [id number] Ordering Physician: Tavia Medina Electronically Signed By: Madelyn Medina PA-C [address] [facility], [place], [address], [facility] - [facility] 02/18/2025 15:30:10 Problems Name Problem SNOMED Code Status Onset Date Resolution Date Notes Provider Name and Address Organization Details Recorded Time Compression fracture of thoracic spine 502140176 Active 2024 IZABELLA jenkins [facility] 15:38:23 Problem Notes None recorded. Medical Equipment None Reported. Allergies No known drug allergies Medications Name Sig Start Date Stop Date Status Note LastModified by Organization Details LastModified Time cyclobenzapr ine 10 mg tablet TAKE 1 TABLET BY MOUTH THREE TIMES DAILY FOR 5 DAYS active Not Available Not Available N ot Available hydrocodone 5 mg-acetamino phen 325 mg tablet TAKE 1 TABLET BY MOUTH EVERY 8 HOURS NEEDED FOR PAIN active Not Available Not Available No t Available meloxicam 15 mg tablet TAKE 1 TABLET BY MOUTH EVERY DAY WITH A MEAL active Not Available Not Available No t Available lisinopril 20 mg tablet TAKE 1 TABLET BY MOUTH DAILY active Not Available Not Available Not Available levothyroxin e 75 mcg tablet TAKE 1 TABLET BY MOUTH DAILY active Not Available Not Available Not Available lidocaine 5 % topical patch APPLY 1 PATCH TOPICALLY TO THE SKIN DAILY. LEAVE ON MOST PAINFUL AREA FOR UP TO 12 HOURS active Not Available Not Available Not Available methylpredni solone 4 mg tablets in a dose pack FOLLOW PACKAGE DIRECTIONS active Not Available Not Available N ot Available ferrous sulfate 324 mg (65 mg iron) tablet,delay ed release TAKE 1 TABLET ORALLY DAILY active Not Available Not Available No t Available Vitals Date Recorded Body height Body mass index (BMI) Body weight Provider Name and Address Organization Details Last Updated DateTime 01/14/2025 152.4 cm 35.2 kg/m2 91863.63 g Zulay Davis [facility] 01/14/2025 10:00:55 Date Recorded Body height Body mass index (BMI) Body weight Provider Name and Address Organization Details Last Updated DateTime 02/03/2025 152.4 cm 35.2 kg/m2 02756.63 g IZABELLA ALFONSO [facility] 02/03/2025 15:23:27 Social History None recorded. Functional Status None recorded. Mental Status None recorded. Family History Nothing Reported. Medical History No medical history recorded. Gynecological HistoryNo gynecological history recorded. Obstetrics History GPAL:G 0 P 0 0 0 0 Past Encounters Encounter ID Performer Location Encounter Start Date Encounter Closed Date Diagnosis/Indication Diagnosis SNOMED-CT Code Diagnosis ICD10 Code Diagnosis IMO Codes Diagnosis Note [id number] [facility] - [place] [address] [place] [id number] 01/14/2025 08:48:55 01/25/2025 15:50:56 Pain in thoracic spine 463412212 M54.6 [id number] Tavia GuerreroLynneKraig [facility] - [address] [place] [id number] 02/03/2025 15:10:49 02/12/2025 11:59:56 Compression fracture of thoracic spine 397704071 S22.000G 9985340201 Health Concerns Section Related Observation LastModified by Organization Detai ls LastModified Time None Recorded Concern Status LastModified by Organization Details LastModified Time None Recorded Advance Directives Directive None Recorded Payers Insurance Date Sequence Insurance Name Policy Number Policy Downey Covered Member ID Downey Member ID Guarantor Name 03/01/2025 1 [facility] [id number] Nelida Das [id number] Nelida Das Notes Date Note Type Note Provider Name and Address Organization Details Recorded Time 01/14/2025 text/html I am seeing this patient under the supervision of Dr. Lin who was available but who did not see the patient. HPI: Patient is a 80-year-old female presenting to urgent caretoday for evaluation of mid back pain. Localizes the pain to the thoracic region of the spine around the paraspinal muscles in that region. States it began around 3 weeks ago when she was pulling weeds and reaching behind her clothing dryer as well. Hurts with certain motions. She has tried ibuprofen with minimal relief. Denies numbness or tingling. States she is a nondiabetic. Past family, medical, social history and review of systems has been reviewed, updated and is located in the patient's chart. Examination: Thoracic/Lumbar spine exam: The patient is well appearing and in no apparent distress. Alert and oriented x 3. On exam, individual arises from the seated position without difficulty. Head is centered over the pelvis. Pelvis is level. Shoulders are level. Back is nontender to palpation and without stepoff deformity or overlying skin change. Patient has good motion through the lumbar and thoracic spine, however she does have pain around the paraspinal muscles of the thoracic spine when she rotates her torso. Hip and knee range of motion is full. Normal seated SLR. Reflexes are 2+ at the knees and 2+ at the ankles. No clubbing, cyanosis or edema detected bilaterally. Lower extremity motor strength is 5/5 and sensation intact distally bilaterally. Peripheral, vascular, lymphatic examination, skin, neurological, coordination, reflexes, sensation are within normal limits. X-rays ordered, obtained and reviewed independently today at [facility]: 2-view x-rays of the T-spine revealed no obvious acute fractures or dislocations. Impression: Back thoracic muscle strain Plan: I discussed my findings and the situation with the patient. We discussed potential treatment options at this time. Patient was sent a prescription for Medrol Dosepak, as well as a prescription for meloxicam to take after she is done with the Medrol Dosepak. Risks and benefits of the medications were discussed. Patient was advised not to take any other NSAIDs with meloxicam including ibuprofen/Advil/Aleve /Motrin, and was advised to take it with food. Follow-up in 3 weeks with her spine team was arranged in case patient is still having difficulty. Call sooner with any questions or concerns. She may call and cancel appointment if she is doing well at that time. Patient understands and agrees with the plan. All questions were answered. Speech recognition local company truck driver software was used to create portions of this document. An attempt at proofreading has been made to minimize errors. Please call for corrections. Mami Haile PA-C [address] [place] [address], [place], [address], [facility] - [facility] 01/14/2025 10:46:06 02/03/2025 text/html I am seeing the patient today under the supervision of Dr. Eddy who was available but who did not see the patient.History is taken from the patientHPI: Patient back to us today pleasant 80-year-old female still with ongoing severe thoracic pain. She has not attended therapy before. This has been ongoing for about 3 weeks now. Seen in urgent care given medications as well as seen by her primary care provider she has had no improvement in her symptoms.Past family, medical, social history and review of systems has been reviewed, updated and is located in the patient s chart.EXAMINATION: Patient has a significant baseline kyphosis. She has tenderness to palpation over the T12 region and out into her flank region. She transitions easily. She is alert oriented x 3 mood and affect are appropriate within normal limits otherwise. Has full strength resisted testing of deltoid, biceps and triceps strength. Strong finger AB and adduction.X-RAYS: Were obtained and independently reviewed today in our office. Performed in the findings are as follows: I revisited his previous x-rays completed in the office by one of my colleagues which shows a suspicious possible compression fracture around the T8 or T9 region.DIAGNOSIS: Thoracic compression fractureMEDICAL DECISION MAKING:I would recommend MRI for further evaluation of possible compression fracture to her thoracic spine. This is discussed with her. She has had no improvement after 3 weeks. History and exam is consistent with possible compression fracture. She is educated and questions answered. Follow-up made.Today's visit involved examining the patient, reviewing the history, reviewing the radiographic studies, counseling the patient regarding treatment options, and the administrative tasks including placing orders, preparing patient information and home handouts and preparing the visit note. This note was generated with [facility] speech recognition local company truck driver dictation software. Please excuse any errors that may have been overlooked during review of this note. Sometimes, these errors may affect the content or meaning of a given sentence. Please call for corrections. Tavia Medina PA-C [address] [facility] [address], [place], [address], [facility] - [facility] 02/03/2025 15:57:04 OBGyn Episode No OBEpisode recorded.
== END 2025-03-18 11:19 | disposition home or self-care (01) ==
LOC: HO.HMCHD 10:48
PROVIDERS: PCP Student in an Organized Health Care Education/Training Program; Visit Provider Student in an Organized Health Care Education/Training Program
DX: I10 Essential (primary) hypertension (principal); N63.10 Unspecified lump in the right breast, unspecified quadrant; S22.060A Wedge compression fracture of T7-T8 vertebra, initial encounter for closed fracture; I35.0 Nonrheumatic aortic (valve) stenosis; E03.9 Hypothyroidism, unspecified; R60.9 Edema, unspecified

== ENCOUNTER → 2025-03-30 09:56 | Outpatient (REF) | payer OTHER, MEDICARE, SELFPAY ==
--- NOTE | ~2025-03-30 | NM_ITS ---
EXAMINATION: NM BONE SCAN OF THE WHOLE BODY CLINICAL INFORMATION: Abnormal MRI. Malignant neoplasm. Right breast mass. COMPARISON: None. TECHNIQUE: Multiple gamma scintillation camera images of the whole body were performed 2.5 hours following the intravenous administration of 29 mCi Tc-99m MDP. FINDINGS: In the head, Small foci of increased activity seen in the parietal bone on lateral view In the thoracic cage and upper extremities, there are multiple foci of bilateral rib uptake consistent with metastatic disease. There are focal areas of intense activity seen in the right humerus and right scapula In the spine, there is moderate intense activity seen in T11, T10, T9, T8 and T7 vertebra. In the pelvis, there is mild activity seen in the left posterior iliac crest. In the lower extremities, moderate activity seen in proximal/mid left femur. No other definite bony abnormalities are noted. The urinary bladder and faint visualization of both kidneys are noted. NM/NM bone scan whole body IMPRESSION: Multiple foci of increased activity seen in right parietal bone, right humerus, bilateral ribs, thoracic vertebrae, left posterior's iliac bone and left proximal/mid femur consistent with metastatic skeletal disease Electronically signed by: Rufino Whitley MD 03/30/2025 04:16 PM ANTHONY
== END ==
LOC: HO.NUCMED 09:56
PROVIDERS: PCP Student in an Organized Health Care Education/Training Program; Visit Provider Internal Medicine
DX: S22.060A Wedge compression fracture of T7-T8 vertebra, initial encounter for closed fracture (principal); C80.1 Malignant (primary) neoplasm, unspecified; R93.89 Abnormal findings on diagnostic imaging of other specified body structures
CPT/HCPCS: 78306; A9503

== ENCOUNTER → 2025-03-30 09:59 | Outpatient (BNV) | payer OTHER, MEDICARE, SELFPAY | PROVIDERS: PCP Student in an Organized Health Care Education/Training Program; Visit Provider Radiology Diagnostic Radiology | DX: C50.919 Malignant neoplasm of unspecified site of unspecified female breast (principal); S22.060A Wedge compression fracture of T7-T8 vertebra, initial encounter for closed fracture | CPT/HCPCS: 78306 ==

== ENCOUNTER 2025-04-01 15:20 | Outpatient (AMB) | payer OTHER, SELFPAY ==
--- OUTSIDE RECORDS SUMMARY | 2024-09-18 06:50 | XMS_ITS ---
Author Organization [facility] Address [address] [place] [address] Care Team Providers Care Rigging Man Name Role Phone BLAZE BONILLA Primary Care Provider Raoul Allen Jr [phone] REASON FOR VISIT fe def anemia Encounters Encounter Location Date Provider Diagnosis [facility] Out[place] [address] [place], [place] [phone] 09/18/2024 Raoul Rolno Jr Plan Of Treatment No Information Progress Notes * WINSTON CANODOB:[birth year] (80 yo F)Acc No.[id number]:09/18/2024 EGD and COL/MAC Patient: WINSTON REYES Provider: Amirah Rolon MD :1945 A ge:79 Y S ex:Female Date:09/18/2024 Address:[address] [place] [address], [address] Pcp:BLAZE BONILLA Subjective: * Chief Complaints: * F e def anemia * The named appointment provid er may or may not be the originator of this progress note, and it is not deemed complete until electronically signed by the appointment provider. Sign off status: Pending * Provider: Amirah Rolon MD Date: 09/18/2024 Generated for Printi ng/Faxing/eTransmitting on: 06/01/2024 08:34 PM EST
--- NOTE | 2025-04-01 15:23 | MHC.PC.OV ---
Vital Signs 04/01/25 15:28 Weight 166 lb BP 160/62 H Blood Pressure Location Rt brachial Position Sitting Respiration 20 Pulse 67 Pulse Source Pulse Oximeter Temp 97 F Temp Source Temporal Artery Scan Pulse Oximetry (%) 97 Oxygen Delivery Method Room Air Intake Visit Reasons: BP check - see comments Hand Spray Operator Required: No Accompanied by: Self / Same As Patient Allergies No Known Allergies Allergy (Verified 04/01/25 15:24) Medication List - Last Reconciled 04/01/25 by Sami Cummings MD blood pressure monitor (Blood Pressure Kit) As directed cyanocobalamin (vitamin B-12) (Vitamin B-12) 1,000 mcg PO DAILY hydrochlorothiazide 12.5 mg PO DAILY hydrocodone-acetaminophen 5-325 mg 1 tab PO Q8H 30 days letrozole 2.5 mg PO DAILY levothyroxine 75 mcg PO DAILY lidocaine 5% 1 patch topical DAILY lisinopril 30 mg PO DAILY palbociclib (Ibrance) 125 mg PO DAILY palbociclib (Ibrance) mg PO polyethylene glycol 3350 (Miralax) 17 grams PO BID Tobacco use date assessed: 08/06/24 Dental Screening Dental Screen Date: 08/06/24 HPI HPI Comments History of Present Illness Details History of Present Illness The patient is a 80 year old individual presenting for management of multiple chronic conditions and medication refills. The patient has a history of hypertension, which has been managed with lisinopril 20 mg. Due to persistently high blood pressure readings, the lisinopril dosage was recently increased to 30 mg, and hydrochlorothiazide was added. The patient just started this new regimen yesterday and has not been checking blood pressures at home. The patient also reports a history of swelling that resolved on its own prior to starting any new medication. The patient has a diagnosis of breast cancer with bone metastasis and has recently started a new treatment regimen. This regimen includes letrozole 2.5 mg daily, Ibrance 125 mg daily for three weeks on and one week off, and a monthly denosumab 120 mg injection for bone metastasis. For chronic pain related to a spine fracture, the patient takes hydrocodone. The patient has experienced difficulties with refills, as it is a controlled substance limited to a 30-day supply and has had issues with the insurance company. The patient reports experiencing anxiety, particularly in relation to medical matters, and expressed a preference for an as-needed medication rather than a daily one. Medical History: - Breast cancer with bone metastasis - Essential Hypertension - Spine fracture - Anxiety Medications: - Lisinopril 30 mg daily for hypertension. - Hydrochlorothiazide 12.5 mg daily for hypertension, started yesterday. - Hydrocodone for pain from a spine fracture. - Letrozole 2.5 mg daily for breast cancer. - Ibrance 125 mg daily for breast cancer, taken for 3 weeks followed by 1 week off. - Denosumab 120 mg injection once a month for bone metastasis. - B12 supplement Social History - Employment: The patient discussed [facility] paperwork. - Social Support: The patient plans to spend the holidays with their daughter. [facility] Medical History (Updated 04/01/25 @ 15:49 by Sami Cummings MD) Anxiety Peripheral edema Breast mass Compression fracture of T8 vertebra Malignant neoplasm Aortic stenosis Hypothyroidism Essential hypertension Surgical History History of colonoscopy (~07/13/16) Family History Mother Lung cancer Cancer Father Stomach cancer Daughter Cervical cancer HTN (hypertension) Social History Household Members: None Housing: Condominium Alcohol intake: current Alcohol intake frequency: holidays/special occasions only Patient Tobacco Use Status: Former Tobacco user Tobacco use type: Cigarette service: No Current occupational status: employed Current occupation: [employer] Cognitive needs: No Hearing needs: No Vision needs: Yes (reading glasses) Questionnaire PHQ-9 Over the last 2 weeks, how often have you been bothered by any of the following problems? 1. Little interest or pleasure in doing things: not at all 2. Feeling down, depressed, or hopeless: not at all 3. Trouble falling or staying asleep, or sleeping too much: not at all 4. Feeling tired or having little energy: not at all 5. Poor appetite or overeating: not at all 6. Feeling bad about yourself - or that you are a failure or have let yourself or your family down: not at all 7. Trouble concentrating on things, such as reading the newspaper or watching television: not at all 8. Moving or speaking so slowly that other people could have noticed. Or the opposite - being so fidgety or restless that you have been moving around a lot more than usual: not at all 9. Thoughts that you would be better off or of hurting yourself in some way: not at all Total score: 0 Depression Screening Interpretation: Negative Depression Screening Done: Yes 58657 - PHQ-9 Billing: Yes Source: Developed by Drs. Babar Huertas, Sandy Loomis, Yovani Quiles and colleagues, with an educational ana from [employer]. Thrive Questionnaire Date Thrive assessed: 08/06/24 JASMIN-7 AMB Questionnaire JASMIN-7 Date JASMIN - 7 assessed: 08/06/24 Source: Developed by Drs. Babar Huertas, Sandy Loomis, Yovani Quiles and colleagues, with an educational ana from [employer]. Review of Systems Narrative Review of Systems - General: Denies nausea or vomiting. - Cardiovascular: Denies chest pain. - Respiratory: Denies shortness of breath. - Neurological: Denies headaches. - Eyes: Denies vision changes. - Psychiatric: Reports anxiety, especially related to medical situations. - Musculoskeletal: No active joint complaints mentioned. - Integumentary/Skin: No skin complaints mentioned. All systems reviewed & are unremarkable except as reviewed in HPI and above Physical exam (Primary Care) Vital Signs: Last Vital Signs Temp 97 F 04/01/25 15:28 Pulse 67 04/01/25 15:28 Resp 20 04/01/25 15:28 BP 160/62 H 04/01/25 15:28 Pulse Ox 97 04/01/25 15:28 Oxygen Delivery Method Room Air 04/01/25 15:28 Tobacco/Smoking Status: Tobacco use Status Tobacco use date assessed 08/06/24 04/01/25 15:27 Patient Tobacco Use Status Former Tobacco user 04/01/25 15:27 Tobacco use type Cigarette 04/01/25 15:27 Depression Screening Interpretation: Negative Thrive Assessment: Date of Thrive Assessment Date Thrive assessed 08/06/24 04/01/25 15:27 Narrative Physical Exam General: +Alert and oriented, Well nourished, No acute distress. Eye: Pupils are equal, round and reactive to light, Intact accommodation, Extraocular movements are intact, Normal conjunctiva, Vision unchanged. HENT: Normocephalic, Atraumatic, Tympanic membranes are clear, Normal hearing, Oral mucosa is moist, No pharyngeal erythema, Ear canals patent. Respiratory: Lungs CTA bilaterally, No wheeze, Respirations are non-labored. Cardiovascular: Regular rate, Regular rhythm, S1 auscultated, S2 auscultated, No murmur, Good pulses equal in all extremities, Normal peripheral perfusion, No edema. Gastrointestinal: Soft, Non-tender, Non-distended, Normal bowel sounds, No organomegaly. Musculoskeletal: Normal range of motion, Normal strength, No tenderness, No swelling, No deformity, Normal gait. Integumentary: Warm, Dry, [place], Intact. Neurologic: Alert, Oriented, Normal sensory, Normal motor function, No focal defects, Cranial Nerves II-XII are grossly intact, Normal deep tendon reflexes. Psychiatric: Cooperative, Appropriate mood & affect, Normal judgment. Coding Level of Care Code Est Pt Level 4 (29676) Complex visit Add On G2211 Diagnoses Essential hypertension I10 Mass of right breast, unspecified quadrant N63.10 Breast mass location: unspecified quadrant Laterality: right Compression fracture of T8 vertebra, initial encounter S22.060A Encounter type: initial encounter Hypothyroidism, unspecified type E03.9 Hypothyroidism type: unspecified Nonrheumatic aortic valve stenosis I35.0 Cardiac valve disease etiology: nonrheumatic Anxiety F41.9 Additional Codes PHQ-9 - 59116 - PHQ-9 Billing: Yes ([id number]) Assessment & Plan Assessment & Plan (1) Essential hypertension: Comment: - The patient's blood pressure remains elevated despite medication. - The lisinopril dose was recently increased to 30 mg and hydrochlorothiazide 12.5 mg was added. - The plan is to continue both medications, provide refills, and instruct the patient to monitor blood pressure at home. - Follow-up is scheduled in eight weeks to assess efficacy. Code(s): I10 - Essential (primary) hypertension Category: Medical (2) Breast mass: Comment: - The patient has started a new treatment regimen prescribed by oncology. - The plan is to continue with letrozole 2.5 mg daily, Ibrance 125 mg daily (3 weeks on, 1 week off), and monthly denosumab 120 mg injections. Code(s): N63.0 - Unspecified lump in unspecified breast Category: Medical Qualifiers: Breast mass location: unspecified quadrant Laterality: right Qualified Code(s): N63.10 - Unspecified lump in the right breast, unspecified quadrant (3) Compression fracture of T8 vertebra: Comment: - The patient is experiencing difficulty obtaining refills for hydrocodone due to its status as a controlled substance. - A new prescription was sent to the pharmacy, and the patient was advised to call the pharmacy to arrange pickup. Code(s): S22.060A - Wedge compression fracture of T7-T8 vertebra, initial encounter for closed fracture Category: Medical Qualifiers: Encounter type: initial encounter Qualified Code(s): S22.060A - Wedge compression fracture of T7-T8 vertebra, initial encounter for closed fracture (4) Hypothyroidism: Comment: - The patient's hypothyroidism is considered stable on her current medication regimen. - She will continue taking levothyroxine 75 mcg daily. Code(s): E03.9 - Hypothyroidism, unspecified Category: Medical Qualifiers: Hypothyroidism type: unspecified Qualified Code(s): E03.9 - Hypothyroidism, unspecified (5) Aortic stenosis: Comment: - The patient has a known history of aortic stenosis and is now symptomatic with dyspnea on exertion. - A murmur was noted on exam. 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 Code(s): I35.0 - Nonrheumatic aortic (valve) stenosis Category: Medical Qualifiers: Cardiac valve disease etiology: nonrheumatic Qualified Code(s): I35.0 - Nonrheumatic aortic (valve) stenosis (6) Anxiety: Comment: - The patient reports situational anxiety related to medical events but declined daily medication. - An as-needed option, hydroxyzine, was discussed, but the patient deferred due to potential cost. - The plan is to monitor the symptoms. Code(s): F41.9 - Anxiety disorder, unspecified Category: Medical Plan: Health Maintenance: - Monitor blood pressure at home. Patient was informed and verbally consented to the use of an ambient scribe for clinic note documentation during this visit. Plan I had a discussion with the patient regarding the management of several ongoing health issues. I explained that blood pressures remain high, justifying the addition of hydrochlorothiazide to the lisinopril regimen, and emphasized the importance of home blood pressure monitoring. We discussed the difficulties with obtaining hydrocodone refills, and I confirmed that a new prescription has been sent and advised the patient to contact the pharmacy directly. I reviewed the patient's new cancer treatment regimen as prescribed by oncology, including Ibrance, letrozole, and denosumab. We also discussed situational anxiety, and while options were presented, the patient deferred starting any new medication at this time. A follow-up appointment was scheduled in eight weeks to reassess. Medications: Refilled hydrocodone-acetaminophen 5-325 mg Partial Fill upon patient request. 1 tab PO Q8H 90 tabs 0RF pain 30 days lisinopril 30 mg PO DAILY 30 tabs 0RF hydrochlorothiazide 12.5 mg PO DAILY 30 caps 0RF Patient Instructions: - Take your lisinopril 30 mg and hydrochlorothiazide 12.5 mg every day to help lower your blood pressure. - Please check your blood pressure at home. - Call your pharmacy ([facility]) to ask about picking up your hydrocodone prescription for pain; a new prescription has been sent for you. - Continue taking your cancer medications (Ibrance and letrozole) and getting your monthly shot (denosumab) as directed by your cancer doctor. - We have completed your FMLA paperwork. - Please schedule an appointment to come back and see me in eight weeks.
[2025-04-01 15:28] VITALS: BP 160/62; PULSE 67; RESP 20; TEMP 36.1; O2SAT 97
--- OUTSIDE RECORDS SUMMARY | 2025-04-01 20:34 | XMS_ITS | Continuity of Care Document ---
Author Organization [place] - [facility], [facility] [place] Address [address] [place] [address] Care Team Providers Care Superintendent Distribution Name Role Phone BHANU DUENAS Primary Care Provider Assessment No assessment recorded. Plan of Treatment Reminders Order Date Submit Date Provider Last Modified By Organization Details Last Modified Time Details Appointments None recorded. Lab None recorded. Referral None recorded. Procedures None recorded. Surgeries None recorded. Imaging XR, thoracic spine, 3 view - new pt 3 views t spine rm u/c 3 2024 025 [email or web address] [facility], [address], [address], [address], 12:18:44 Medication Orders None recorded. Patient TargetsNo targets recorded. Patient InstructionsNo instructions recorded. Reason for Referral None Reported. Results Created Date Observation Date Name Description Value Unit Range Abnormal Flag Note LastModifiedBy Organization Detail LastModifiedTime 01/15/2001/14/2025 XR, thora cic spine , 3 view http:/ [email or web address] ?Encry pted=s hAaTro YD8dLq bEUv6g %2BXZw aYqtaq 0bqfl% 2Fg9IQ a4ajBk vP9nXo QUaueC m3YtLR FvZlgJ JJ8mAn HZtai3 7d3045 AC0Klb 3SBUqK nKiQtr MwF INTERFACE [facility] [address], [place], [address], 01/14/2025 10:08:19 01/15/2001/14/2025 XR, thora cic spine , 3 view http:/ [email or web address] ?Encry pted=s hAaTro YD8dLq bEUv6g %2BXZw aYqtaq 0bqfl% 2Fg9IQ a4ajBk vP9nXo QUaueC m3YtLR FvZlgJ JJ8mAn HZtai3 1f6741 AC0Klb 3SBUqK nKiQtr MwF INTERFACE [facility] [address], [place], [address], 01/14/2025 10:08:21 02/19/20 25 02/15/2025 MRI, juan hansen spine , w/o contr ast [facility] Access ion Number : [id number] Annette manriquez Name: Nito Das [facility]ica [facility] Record Number : [id number] Date of : 1944 Date of Exam: 2024 Referr ing Physic sonu: Mol-Pe lton, Meliss a [facility] [address] [place] [address] Exam: MR Thorac ic Spine (C-) CPT 02904 Room Descri ption: Weiser Siem Espr 1.5 MRI Thorac ic Spine W/O Contra st INDICA TION: S22.00 0G - Wedge compre ssion fractu re of unspec ified thorac ic verteb ra, subseq uent encoun ter for fractu re with delaye d healin g, , , Rule Out: T-Spin e [...] includ ing the verteb ral bodies and analyst microbiology lab ior elemen ts throug hout the thorac [...] S: There is atroph y of the analyst microbiology lab ior parasp inal muscul ature. There may [...] gs concer alina for malign rubi. WSN: [id number] Orderi ng Physic sonu: Mol-Pe lton, Meliss a Electr onical ly Signed By: Madelyn aleman MD [email or web address] [facility] [address], [place], [address], 02/18/2025 15:30:10 Result Notes Documentation Provider Name and Address Organization Details Recorded Time Xr, Thoracic Spine, 3 View : [email or web address]? Encrypted=isGgXzjRQ9yOrpB Uv6g%3UJDreBxzoc8wmye%2Fg 3YKo4qeXuvV2gYaONsajQf0Wc SVBnJhoALJ5xOuKLslz58h722 3CB8Dja4OPDeEzTkKhiVvM Not Available [facility] 01/14/2025 10:08: 19 Xr, Thoracic Spine, 3 View : [email or web address] Encrypted=jkHsWhlRS8vJvtL Uv6g%1PADjiWbnvr6rfpy%2Fg 4KIi3jiZgjL3kJmMVvroXj8Iv HKNnVbmWJP0iMvDZrjo57g319 9TP2Yca3ISJdUtSgLweZvL Not Available [facility] 01/14/2025 10:08: 21 Problems Name Problem SNOMED Code Status Onset Date Resolution Date Notes Provider Name and Address Organization Details Recorded Time Compression fracture of thoracic spine [id number] Active 2024 IZABELLA jenkins [place] [facility] 15:38:23 Problem Notes None recorded. Medical Equipment [...] Updated DateTime 01/14/2025 152.4 cm 35.2 kg/m2 53184.63 g Zulay Davis [place] [facility] 01/14/2025 10:00:55 Social History None recorded. Functional Status None recorded. Mental Status None recorded. Family History Nothing Reported. Medical History No medical history recorded. Gynecological HistoryNo gynecological history recorded. Obstetrics History GPAL:G 0 P 0 0 0 0 Past Encounters Encounter ID Performer Location Encounter Start Date Encounter Closed Date Diagnosis/Indication Diagnosis SNOMED-CT Code Diagnosis ICD10 Code Diagnosis IMO Codes Diagnosis Note [id number] Mami Haile PA-C [facility] [place] [address] [place] [address] 01/14/2025 08:48:55 01/25/2025 15:50:56 Pain in thoracic spine 326378204 M54.6 48895 Health Concerns Section Related Observation LastModified by Organization Detai ls LastModified Time None Recorded Concern Status LastModified by Organization Details LastModified Time None Recorded Payers Encounter Date Sequence Insurance Name Policy Number Policy Downey Covered Member ID Downey Member ID Guarantor Name 01/14/[address] [place] [address] [place] [place] [id number] Nelida Das [id number] Nelida Das Notes Date Note Type Note Provider Name and Address Organization Details Recorded Time 01/14/2025 text/html I am seeing this patient under the supervision of Dr. Lin who was available but who did not see the patient. HPI: Patient is a 80-year-old [facility] pain. Localizes [...] ordered, obtained and reviewed independently today at [facility]: 2-view x-rays of the T-spine revealed [...] take any other NSAIDs with meloxicam including ibuprofen/Advil/Adore ve/Motrin, and was advised to take it with food. Follow-up in 3 weeks with her spine team was arranged in case patient is still having difficulty. Call sooner with any questions or concerns. She may call and cancel appointment if she is doing well at that time. Patient understands and agrees with the plan. All questions were answered. Speech recognition public events facilities rental manager software was used to create portions of this document. An attempt at proofreading has been made to minimize errors. Please call for corrections. Mami Haile PA-C [address] [facility] [address], [place], [address], [place] - [facility] 01/14/2025 10:46:06 OBGyn Episode No OBEpisode recorded.
--- OUTSIDE RECORDS SUMMARY | 2025-04-01 20:34 | XMS_ITS | Data Portability ---
Author Organization [facility], ZEESHAN Joe PT Address [address] [place] [address] Care Team Providers Care Fitter Up Name Role Phone BHANU DUENAS Primary Care Provider [phone] Assessment No assessment recorded. Plan of Treatment Reminders Order Date Submit Date Provider Last Modified By Organization Details Last Modified Time Details Appointments None recorded. Lab None recorded. Referral None recorded. Procedures None recorded. Surgeries None recorded. Imaging MRI, thoracic spine, w/o contrast 2024 025 [facility] ([facility]), [address], [place], [address], 5 09:01:36 XR, thoracic spine, 3 view - new pt 3 views t spine rm u/c 3 [address] Office, [address], [address], [place], [address], 5 12:18:44 Medication Orders None recorded. Patient [...] a4ajBk vP9nXo QUaueC m3YtLR FvZlgJ JJ8mAn HZtai3 4y4095 AC0Klb 3SBUqK nKiQtr MwF INTERFACE [facility] [address], [place], [address], 01/14/2025 10:08:19 01/15/20 25 01/14/2025 XR, howarda cic spine , 3 view [email or web address]:/ [email or web address] ?Encry pted=s hAaTro YD8dLq bEUv6g %2BXZw aYqtaq 0bqfl% 2Fg9IQ a4ajBk vP9nXo QUaueC m3YtLR FvZlgJ JJ8mAn HZtai3 3l8099 AC0Klb 3SBUqK nKiQtr MwF INTERFACE [facility] [address], [place], [address], 01/14/2025 10:08:21 02/19/20 25 02/15/2025 MRI, juan cic spine , w/o contr ast [facility] Access ion Number : [id number] Patien t [facility] : [id number] Date of : 1944 Date of Exam: 2024 Referr ing Physic sonu: Mol-Pe on, Gilda [facility] ([facility]) [address], [address] [place] [address] Exam: MR Thorac ic Spine (C-) CPT 14287 Room Descri ption: Mobile Siem Espr 1.5 MRI Thorac ic Spine [...] includ ing the verteb ral bodies and coal shooter ior elemen ts throug hout the thorac [...] S: There is atroph y of the coal shooter ior parasp inal muscul ature. There may [...] gs concer alina for malign rubi. WSN: [id number] Orderi ng Physic sonu: Gilda Mendoza onical ly Signed By: Madelyn aleman MD [email or web address] [facility] ([facility]) [address], [place], [address], 02/18/2025 15:30:10 Result Notes Documentation Provider Name and Address Organization Details Recorded Time Xr, Thoracic Spine, 3 View : [email or web address]? Encrypted=jdKeZjjBG6oOynC Uv6g%3SFAetOihzj4vpbj%2Fg 7SNx7ugTykM6oAdCNufmKh2Yp UXLqVljGTI2tDnDXwhb26h878 4SQ0Nmh5KEIzVjUjRvoKkI Not Available [facility] 01/14/2025 10:08:19 Xr, Thoracic Spine, 3 View : [email or web address] Encrypted=xrWiXmzYV2vYxrX Uv6g%2DITrgInmyj5pjda%2Fg 2YOp1ilIfcM7pDuPXitmRl7Ln ZUThYxsLJN5bQmHBfbf48r144 9LD1Oeh6AJPnGeQiNekUpO Not Available [facility] 01/14/2025 10:08:21 Mri, Thoracic Spine, W/o Contrast : [facility] Accession Number: [id number] Patient Name: Nelida Das Date of : 1945 Date of Exam: 02-15-2025 Referring Physician: Tavia Medina [facility] ([facility]) [address], [address] [place] [address] Exam: MR Thoracic Spine (C-) CPT 29888 Room Description: [facility] Espr 1.5 MRI Thoracic Spine W/O [...] the background findings concerning for malignancy. WSN: [id number] Ordering Physician: Tavia Medina Electronically Signed By: Madelyn Medina PA-C [address] [facility] [address] [facility], [place], [address], [facility] - [facility] 02/18/2025 15:30:10 Problems Name Problem SNOMED Code Status Onset Date Resolution Date Notes Provider Name and Address Organization Details Recorded Time Compression fracture of thoracic spine 440401000 Active 2024 IZABELLA jenkins [facility] 15:38:23 Problem Notes None recorded. Medical Equipment [...] Updated DateTime 01/14/2025 152.4 cm 35.2 kg/m2 74453.63 g Zulay Davis [facility] 01/14/2025 10:00:55 Date Recorded Body height Body mass index (BMI) Body weight Provider Name and Address Organization Details Last Updated DateTime 02/03/2025 152.4 cm 35.2 kg/m2 79880.63 g IZABELLA ALFONSO [facility] 02/03/2025 15:23:27 Social History None recorded. Functional Status None recorded. Mental Status None recorded. Family History Nothing Reported. Medical History No medical history recorded. Gynecological HistoryNo gynecological history recorded. Obstetrics History GPAL:G 0 P 0 0 0 0 Past Encounters Encounter ID Performer Location Encounter Start Date Encounter Closed Date Diagnosis/Indication Diagnosis SNOMED-CT Code Diagnosis ICD10 Code Diagnosis IMO Codes Diagnosis Note [id number] [facility] [place] [facility] [place] [address] [place] [address] 01/14/2025 08:48:55 01/25/2025 15:50:56 Pain in thoracic spine 174474852 M54.6 [id number] Tavia GuerreroLynneKraig [facility] [address] [place] [address] 02/03/2025 15:10:49 02/12/2025 11:59:56 Compression fracture of thoracic spine 585125473 S22.000G 4928673448 Health Concerns Section Related Observation LastModified by Organization Detai ls LastModified Time None Recorded Concern Status LastModified by Organization Details LastModified Time None Recorded Advance Directives Directive None Recorded Payers Insurance Date Sequence Insurance Name Policy Number Policy Downey Covered Member ID Downey Member ID Guarantor Name 03/01/2025 1 [facility] [id number] Nelida Das [id number] Nelida Das Notes Date Note Type Note [...] ordered, obtained and reviewed independently today at [facility]: 2-view x-rays of the T-spine revealed no [...] plan. All questions were answered. Speech recognition hooker up software was used to create portions of this document. An attempt at proofreading has been made to minimize errors. Please call for corrections. Mami Haile PA-C [address] [place] [address], [place], [address], [facility] - [facility] 01/14/2025 10:46:06 02/03/2025 text/html [...] visit note. This note was generated with [facility] speech recognition hooker up dictation software. Please excuse any errors that may have been overlooked during review of this note. Sometimes, these errors may affect the content or meaning of a given sentence. Please call for corrections. Tavia Medina PA-C [address] [facility] [address], [place], [address], [facility] - [facility] 02/03/2025 15:57:04 OBGyn Episode No OBEpisode recorded.
--- OUTSIDE RECORDS SUMMARY | 2025-04-01 20:34 | XMS_ITS | Continuity of Care Document ---
Author Organization [place] [facility] Address [address] [place] [address] Care Team Providers Care Magnetizer Name Role Phone JeromeBHANU WRIGHT Primary Care Provider Assessment No assessment recorded. Plan of Treatment Reminders Order Date Submit Date Provider Last Modified By Organization Details Last Modified Time Details Appointments None recorded. Lab None recorded. Referral None recorded. Procedures None recorded. Surgeries None recorded. Imaging MRI, thoracic spine, w/o contrast 2024 025 [facility] ([facility]), [address] [place], [address], 09:01:36 Medication Orders None recorded. Patient TargetsNo targets recorded. Patient InstructionsNo instructions recorded. Reason for Referral None Reported. Results Created Date Observation Date Name Description Value Unit Range Abnormal Flag Note LastModifiedBy Organization Detail LastModifiedTime 01/15/2001/14/2025 XR, thora cic spine , 3 view http:/ [email or web address] ?Encry pted=s hAaTro YD8dLq bEUv6g %2BXZw aYqtaq 0bqfl% 2Fg9IQ a4ajBk vP9nXo QUaueC m3YtLR FvZlgJ JJ8mAn HZtai3 8t7820 AC0Klb 3SBUqK nKiQtr MwF INTERFACE [facility] [address], [place], [address], 01/14/2025 10:08:19 01/15/2001/14/2025 XR, thora cic spine , 3 view http:/ [email or web address] ?Encry pted=s hAaTro YD8dLq bEUv6g %2BXZw aYqtaq 0bqfl% 2Fg9IQ a4ajBk vP9nXo QUaueC m3YtLR FvZlgJ JJ8mAn HZtai3 5j3544 AC0Klb 3SBUqK nKiQtr MwF INTERFACE [facility] [address], [place], [address], 01/14/2025 10:08:21 02/19/20 25 02/15/2025 MRI, juan cic spine , w/o contr ast [facility] Access ion Number : [id number] Annette manriquez Name: Nito Das [facility] Record Number : [id number] Date of : 1944 Date of Exam: 2024 Referr ing Physic sonu: Mol-Pe lton, Gilda Go d [facility] ([facility]) [address], [address] [place] [address] Exam: MR Thorac ic Spine (C-) CPT 94360 Room Descri ption: [facility] Espr 1.5 MRI Thorac ic Spine W/O [...] includ ing the verteb ral bodies and aprn ior elemen ts throug hout the thorac [...] S: There is atroph y of the aprn ior parasp inal muscul ature. There may [...] gs concer alina for malign rubi. WSN: [id number] Orderi ng Physic sonu: Mol-Pe lton, Meliss a Electr onical ly Signed By: Madelyn aleman MD [email or web address] [facility] ([facility]) [address], [place], [address], 02/18/2025 15:30:10 Result Notes None recorded. Problems Name Problem SNOMED Code Status Onset Date Resolution Date Notes Provider Name and Address Organization Details Recorded Time Compression fracture of thoracic spine 295373332 Active 2024 IZABELLA jenkins [place] [facility] 15:38:23 Problem Notes None recorded. Medical [...] Updated DateTime 02/03/2025 152.4 cm 35.2 kg/m2 44295.63 g IZABELLA ALFONSO [facility] 02/03/2025 15:23:27 Social History None recorded. Functional Status None recorded. Mental Status None recorded. Family History Nothing Reported. Medical History No medical history recorded. Gynecological HistoryNo gynecological history recorded. Obstetrics History GPAL:G 0 P 0 0 0 0 Past Encounters Encounter ID Performer Location Encounter Start Date Encounter Closed Date Diagnosis/Indication Diagnosis SNOMED-CT Code Diagnosis ICD10 Code Diagnosis IMO Codes Diagnosis Note [id number] [facility] [place] [facility] [place] [address] [place] [address] 01/14/2025 08:48:55 01/25/2025 15:50:56 Pain in thoracic spine 025514017 M54.6 [id number] Taviaalexandra GuerreroLynneKraig [facility] [address] [place] [address] 02/03/2025 15:10:49 02/12/2025 11:59:56 Compression fracture of thoracic spine 817402871 S22.000G 2969890395 Health Concerns Section Related Observation LastModified by Organization Detai ls LastModified Time None Recorded Concern Status LastModified by Organization Details LastModified Time None Recorded Payers Encounter Date Sequence Insurance Name Policy Number Policy Downey Covered Member ID Downey Member ID Guarantor Name 02/03/[address] [facility] [id number] Nelida Das [id number] Nelida Das Notes Date Note Type Note Provider Name and Address Organization Details Recorded Time 02/03/2025 text/html I am seeing the patient [...] visit note. This note was generated with [facility] speech recognition filler feeder dictation software. Please excuse any errors that may have been overlooked during review of this note. Sometimes, these errors may affect the content or meaning of a given sentence. Please call for corrections. Tavia Medina PA-C [address] [facility] [address], [place], [address], [facility] 02/03/2025 15:57:04 OBGyn Episode No OBEpisode recorded.
--- OUTSIDE RECORDS SUMMARY | 2025-04-01 20:34 | XMS_ITS | Patient Health Record ---
Author Organization [facility] Address [address] [place] [address] Care Team Providers Care Reinforcing Steel Worker Wire Mesh Name Role Phone BLAZE BONILLA Primary Care Provider Raoul Allen Jr Unavailable Allergies No Known Allergies Reason For Referral No Information Medications Medication SIG (Take, Route, Frequency, Duration) Notes Start Date End Date Status Iron (Ferrous Sulfate) 325 (65 Fe) MG Tablet 1 tablet Orally Three times a Week Active Lisinopril 20 MG Tablet 1 tablet Orally Once a day Active Levothyroxine Sodium 137 MCG Tablet 1 tablet Orally Once a day Active Immunizations Vaccine Route Administration Date Status Comme nts Influenza Unknown 03/03/2024 Administered Social History Social History Additional Details Category Social Info Options Details Miscellaneous: Marital status: 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 Problems Problem Type SNOMED Code ICD Code Onset Dates Problem Status W/U Status Risk Notes Problem Colon cancer screening (686560832) Colon cancer screening (Z12.11) Active confirmed Problem Pre-procedure evaluation check (333854021) Encounter for other preprocedural examination (Z01.818) Active confirmed Problem Iron deficiency anemia (46328218) Iron deficiency anemia, unspecified iron deficiency anemia type (D50.9) Active confirmed Vital Signs Temperature 98.0 degrees Fahrenheit 08/28/2024 Blood pressure diastolic 01 mm Hg 08/28/2024 Height 60.5 in 08/28/2024 Blood pressure systolic 001 mm Hg 08/28/2024 Weight 202 lbs 08/28/2024 BMI 38.8 kg/m2 08/28/2024 Encounters Encounter Location Date Provider Diagnosis [facility] [address] [place] [address] 08/28/2024 Raoul Rolon Jr Iron deficiency anemia, unspecified iron deficiency anemia type D50.9 [facility] [address] [place] [address] 08/14/2024 Raoul Rolon Jr [facility] [address] [place] [address] 09/16/2024 Raoul Rolon Jr [facility] [address] [place] [address] 10/29/2024 Raoul Rolon Jr Assessments Encounter Date [...] Insured Coverage Start Date Coverage End Date [facility] [address] [place] [phone] [phone] [id number] WINSTON CANO Self - patient is the insured Medical (General) History Medical History History ICD Code hypertension hypothyroidism depression
== END 2025-04-01 15:48 | disposition home or self-care (01) ==
LOC: HO.HMCHD 15:21
PROVIDERS: PCP Student in an Organized Health Care Education/Training Program; Visit Provider Student in an Organized Health Care Education/Training Program
DX: I10 Essential (primary) hypertension (principal); N63.10 Unspecified lump in the right breast, unspecified quadrant; S22.060A Wedge compression fracture of T7-T8 vertebra, initial encounter for closed fracture; E03.9 Hypothyroidism, unspecified; I35.0 Nonrheumatic aortic (valve) stenosis; F41.9 Anxiety disorder, unspecified

== ENCOUNTER → 2025-04-01 15:20 | Outpatient (BNVA) | payer OTHER, SELFPAY | PROVIDERS: PCP Student in an Organized Health Care Education/Training Program; Visit Provider Student in an Organized Health Care Education/Training Program | DX: Z13.31 Encounter for screening for depression (principal) | CPT/HCPCS: 96127 ==